=== PATIENT | female | born 1965 | race Caucasian/White ===

== ENCOUNTER → 2016-11-26 | Outpatient (CLI) | payer BC ==
[~2016-11-26] MED LIST: ATV5X PO; CANA1TAB3 PO; DSY/150 PO; FLUC200T4 PO; GLC850 PO; GLIM4TAB2 PO; MECL1TAB42 PO; ONDA4TAB10 SL; ONDA4TAB46 PO; PHEN30CA PO; PHEN37.5 PO; POLYSOL21 OPB; PRED20TA PO; SITA1TAB27 PO; SITA50TA PO; ULT50 PO; ZLF/50 PO
--- NOTE | 2016-11-26 10:45 | DIAGNOSTIC IMAGING REPORT ---
CERVICAL SPINE MRI HISTORY: Pain. Radiculopathy. M50.20 TECHNIQUE: Multiplanar multisequence MRI of the cervical spine was performed without the use of contrast. COMPARISON STUDY: None. FINDINGS: Minimal disc desiccation throughout the entire cervical region. Normal signal characteristics of the cervical cord. C2-C3: No significant central canal or neural foraminal narrowing. C3-C4: No significant central canal or neural foraminal narrowing. C4-C5: No significant central canal or neural foraminal narrowing. C5-C6: No significant central canal or neural foraminal narrowing. C6-C7: No significant central canal or neural foraminal narrowing. C7-T1: No significant central canal or neural foraminal narrowing. IMPRESSION: Minimal degenerative disc desiccation. No evidence for significant disc herniation or component of spinal stenosis. Electronically signed by: Shaq Heller M.D. 11/26/2016 10:44 AM Dictated Date/Time: 11/26/2016 10:38 AM
== END | disposition home or self-care (01) ==
LOC: C.MRIBC 09:14
PROVIDERS: ATTEND Orthopaedic Surgery Orthopaedic Surgery of the Spine
DX: M50.20 Other cervical disc displacement, unspecified cervical region (principal)

== ENCOUNTER 2016-12-12 17:47 | Emergency (ER) | payer BC ==
[~2016-12-12] VITALS: Ht 165.1 cm; Wt 78.7 kg
[~2016-12-12 17:47] MED LIST changes: -CANA1TAB3 PO; -FLUC200T4 PO; -GLIM4TAB2 PO; -MECL1TAB42 PO; -ONDA4TAB10 SL; -PHEN30CA PO; -POLYSOL21 OPB; -PRED20TA PO; -SITA1TAB27 PO
[2016-12-12 17:54] VITALS: TEMP 36.9; Ht 165.1 cm; Wt 78.7 kg
[2016-12-12] MEDS ORDERED: SODIUM CHLORIDE 0.9% 1000ML 1,000 ML IV STA ×3 (18:05→19:38)
[2016-12-12] MEDS ORDERED: ONDANSETRON INJ 2 MG/ML 2 ML VIAL IV STA (18:12)
[2016-12-12 19:05] LABS: BASO % 0.3 %; BASO ABS # 0.03 K/uL (0-0.2); COMPLETE YES; EOS % 2.9 %; HEMATOCRIT 45.5 % (37-47); IG% 0.1 %; LYMPH % 31.5 %; MEAN CELL VOLUME 83.8 fL (80-100); MEAN CORPUSCULAR HEMOGLOBIN 27.3 pg (25-34); MEAN CORPUSCULAR HGB CONC 32.5 g/dl (32-36); MONO % 6.9 %; NEUT % 58.3 %; PLATELET COUNT 342 K/uL (130-400); RED BLOOD COUNT 5.43 M/uL (4.2-5.4)
[2016-12-12 19:28] LABS: ALKALINE PHOSPHATASE 84 U/L (45-117); ALT/SGPT 48 U/L (12-78); AST/SGOT 25 U/L (15-37); BLOOD UREA NITROGEN 10 mg/dl (7-18); BUN/CREATININE RATIO 9.7 (10-20); CARBON DIOXIDE 25 mmol/L (21-32); CHLORIDE 105 mmol/L (98-107); GLUCOSE 455 mg/dl (70-99); POTASSIUM 3.6 mmol/L (3.5-5.1); SODIUM 138 mmol/L (136-145)
[2016-12-12 19:37] LABS: PREG INTERNAL NEGATIVE QC NEG CLEAR BACKGROUND; PREG INTERNAL POSITIVE QC POS CONTROL LINE
--- NOTE | 2016-12-12 19:37 | DIAGNOSTIC IMAGING REPORT ---
ABDOMEN AND PELVIS CT WITHOUT CONTRAST CT DOSE: 439.18 mGy.cm HISTORY: nausea and vomiting TECHNIQUE: Multiaxial CT images of the abdomen and pelvis were performed without contrast. COMPARISON STUDY: Abdomen and pelvis CT 09/29/2015. FINDINGS: The lung bases are clear. Hepatic steatosis. Hysterectomy. The unenhanced spleen, adrenal glands, and pancreas are unremarkable. No retroperitoneal lymphadenopathy. There are punctate bilateral intrarenal calculi. No hydronephrosis. No ureteral calculi. Normal bladder. An intrauterine device is in good position. The ovaries are unremarkable. Suboptimal evaluation for bowel pathology due to the lack of intravenous and oral contrast. However, there is no definite bowel wall thickening or obstruction. The appendix is likely surgically absent. IMPRESSION: 1. No definite bowel wall thickening or obstruction. 2. Bilateral nephrolithiasis. No hydronephrosis. 3. Cholecystectomy. 4. Hepatic steatosis. Electronically signed by: Yosvany Robin M.D. 12/12/2016 7:36 PM Dictated Date/Time: 12/12/2016 7:30 PM
[2016-12-12] MEDS ORDERED: NovoLIN-R INSULIN PER UNIT CHARGE IV STA (19:38)
[2016-12-12 19:40] LABS: URINE APPEARANCE CLEAR (CLEAR); URINE BILIRUBIN NEG (NEG); URINE COLOR YELLOW; URINE NITRITE NEG (NEG); URINE SPECIFIC GRAVITY 1.039 (1.000-1.030); UROBILINOGEN NEG (NEG); ZZUR CULT IF INDIC CLEAN CATCH NO
[2016-12-12 19:41] LABS: BETA-HYDROXYBUTYRATE 0.81 mg/dL (0.2-2.81)
[2016-12-12 19:46] LABS: MANUAL MICROSCOPIC REQUIRED? NO; REVIEW REQ? NO
[2016-12-12] MEDS ORDERED: SITA1TAB27 PO (19:50)
[2016-12-12] MEDS ORDERED: PHEN1CAP PO (19:50)
[2016-12-12] MEDS ORDERED: GLIM4TAB2 PO (19:50)
[2016-12-12] MEDS ORDERED: FLUC200T4 PO (19:50)
[2016-12-12] MEDS ORDERED: PRED20TA PO (21:52)
[2016-12-12] MEDS ORDERED: RANITIDINE HCL 150 MG TAB PO ONE (22:00)
[2016-12-12 22:03] VITALS: BP 138/78; PULSE 93; O2SAT 99
--- NOTE | 2016-12-13 17:51 | EMERGENCY ROOM VISIT NOTE ---
History Report prepared by Phong: Vidya Mcpherson Under the Supervision of: Dr. Zach Daley M.D. First contact with patient: 17:58 Chief Complaint: GI ASSESSMENT Stated Complaint: ABDOMINAL PAIN, RASH, INDIGESTION, RASH ON LEGS History of Present Illness The patient is a 51 year old female who presents to the Emergency Room for a GI assessment of constant symptoms that started 5 days ago. The patient has been experiencing GERD, abdominal cramping, nausea, vomiting, and diarrhea persistently for the last 5 days. The abdominal cramping is associated with when she has bowel movements. She states that she experiences burning in her throat and mouth after vomiting. The patient states that her burps smell like "sulfur or rotten eggs." The patient has taken TUMS without any relief of her symptoms. The patient called her PCP today, but they said they could not get her in today and recommended coming into the ED for further evaluation. She states that she has been experiencing GERD 1-2 times a week for the last couple weeks but it became constant 5 days ago. The patient states that she is being treated by her PCP for a systemic yeast infection. The patient states that she has Type 2 diabetes and her doctor increased her Invokana several weeks ago. After her Invokana was increased, she experienced persistent vaginal yeast infections and developed joint aches and fatigue. She called her PCP and discussed her symptoms with them and they told her to stop taking the Invokana and prescribed her Nystatin for yeast in her mouth and a 14 day course of Fluconazole for a systemic yeast infection. The patient started the Fluconazole 5 days ago. She states that she had symptoms prior to taking the new medications. The patient denies any other new medications or any other medication changes. The patient is also experiencing a rash from her thighs to her ankles bilaterally which started this morning. She states that the rash dan and is pruritic. She experienced a similar rash a couple weeks ago and saw her PCP for it. Her PCP told her that the rash was a razor rash. The patient adds that she is experiencing increased urinary frequency but denies any other urinary symptoms. Pt denies LOC, headache, fevers, chills, diaphoresis , visual changes, neck pain, chest pain, breathing difficulties, back pain, melena, hematochezia, numbness, weakness, lymphadenopathy, rash other than rash on bilateral legs, or other complaints. The patient states that her blood sugars have been high recently because she has not been eating much secondary to the "gassy and uncomfortable" feeling she gets after eating. The patient denies any recent antibiotic use. Source of History: patient Onset: 5 days ago Position: abdomen Quality: other (GI assessment) Timing: constant Modifying Factors (Relieving): other (None) Associated Symptoms: + nausea, + vomiting, + abdominal pain (cramping), + diarrhea, + urinary symptoms (increased frequency), + rash (bilateral legs) Note: GERD. burning in throat and mouth after vomiting, burps smell like "sulfur or rotten eggs" Review of Systems See HPI for pertinent positives and negatives. A total of ten systems were reviewed and were otherwise negative. Past Medical & Surgical Medical Problems: (1) Dehydration (2) Depressive disorder (3) Diabetes mellitus type 2 (4) Ectopic (5) Fatty liver (6) Fibromyalgia (7) Headache (8) Heart palpitations (9) Heart palpitations (10) Hyperglycemia (11) Kidney stones (12) Near syncope (13) Pyelonephritis (14) Sleep apnea (15) Syncope (16) Syncope (17) Syncope (18) UTI (urinary tract infection) Surgical Problems: (1) History of cholecystectomy (2) Hx of appendectomy Family History Heart disease Social History Smoking Status: Never Smoker Alcohol Use: occasionally Drug Use: none Marital Status: Housing Status: lives with family Occupation Status: unemployed Current/Historical Medications Scheduled Fluconazole (Diflucan), 1 TAB PO DAILY Glimepiride (Glimepiride), 1.5 TAB PO DAILY Metformin HCl (Metformin HCl), 850 MG PO TID Phentermine Hcl (Phentermine Hcl), 1 TAB PO QAM Prednisone (Prednisone), 20 MG PO DAILY Sertraline HCl (Sertraline HCl), 50 MG PO DAILY Sitagliptin (Januvia), 1 TAB PO DAILY Trazodone HCl (Trazodone HCl), 150 MG PO HS Scheduled PRN Lorazepam (Lorazepam), 0.5 MG PO HS PRN for Anxiety/Insomnia Ondansetron Hcl (Zofran), 4 MG PO Q4H PRN for Nausea Tramadol HCl (Tramadol HCl), 50 MG PO Q8 PRN for Pain Allergies Coded Allergies: Sulfa Antibiotics (Verified Allergy, Intermediate, HIVES, 12/12/16) Physical Exam Vital Signs Date Time Temp Pulse Resp B/P (MAP) Pulse Ox O2 Delivery O2 Flow Rate FiO2 12/12/16 22:03 93 20 138/78 99 12/12/16 21:10 82 18 146/85 96 Room Air 12/12/16 19:45 102 20 134/96 98 Room Air 12/12/16 19:08 103 12/12/16 17:54 36.9 107 16 150/89 96 Room Air Physical Exam GENERAL: Awake, alert, well-appearing, in no distress HENT: Normocephalic, atraumatic. Oropharynx unremarkable. EYES: Normal conjunctiva. Sclera non-icteric. NECK: Supple. No nuchal rigidity. FROM. No JVD. RESPIRATORY: Clear to auscultation. CARDIAC: Borderline tachycardic rate, normal rhythm. Extremities warm and well perfused. Pulses equal. ABDOMEN: Soft, non-distended. Epigastric tenderness to palpation. No rebound or guarding. No masses. RECTAL: Deferred. MUSCULOSKELETAL: Chest examination reveals no tenderness. The back is symmetrical on inspection without obvious abnormality. There is no CVA tenderness to palpation. No joint edema. LOWER EXTREMITIES: Calves are equal size bilaterally and non-tender. No edema. No discoloration. NEURO: Normal sensorium. No sensory or motor deficits noted. SKIN: Blotchy erythematous dry rash on bilateral lower extremities. No petechiae, purpura, vesicles, or bullae. No jaundice noted. Medical Decision & Procedures ER Provider Diagnostic Interpretation: Radiology results as stated below per my review and radiologist interpretation: ABDOMEN AND PELVIS CT WITHOUT CONTRAST FINDINGS: The lung bases are clear. Hepatic steatosis. Hysterectomy. The unenhanced spleen, adrenal glands, and pancreas are unremarkable. No retroperitoneal lymphadenopathy. There are punctate bilateral intrarenal calculi. No hydronephrosis. No ureteral calculi. Normal bladder. An intrauterine device is in good position. The ovaries are unremarkable. Suboptimal evaluation for bowel pathology due to the lack of intravenous and oral contrast. However, there is no definite bowel wall thickening or obstruction. The appendix is likely surgically absent. IMPRESSION: 1. No definite bowel wall thickening or obstruction. 2. Bilateral nephrolithiasis. No hydronephrosis. 3. Cholecystectomy. 4. Hepatic steatosis. Electronically signed by: Yosvany Robin M.D. 12/12/2016 7:36 PM Dictated Date/Time: 12/12/2016 7:30 PM Laboratory Results 12/12/16 18:44 Red Blood Count 5.43, Mean Corpuscular Volume 83.8, Mean Corpuscular Hemoglobin 27.3, Mean Corpuscular Hemoglobin Concent 32.5, Mean Platelet Volume 10.0, Neutrophils (%) (Auto) 58.3, Lymphocytes (%) (Auto) 31.5, Monocytes (%) (Auto) 6.9, Eosinophils (%) (Auto) 2.9, Basophils (%) (Auto) 0.3, Neutrophils # (Auto) 6.47, Lymphocytes # (Auto) 3.50, Monocytes # (Auto) 0.77, Eosinophils # (Auto) 0.32, Basophils # (Auto) 0.03 12/12/16 18:44 Test 12/12/16 18:44 12/12/16 19:20 12/12/16 20:48 White Blood Count 11.10 K/uL (4.8-10.8) Red Blood Count 5.43 M/uL (4.2-5.4) Hemoglobin 14.8 g/dL (12.0-16.0) Hematocrit 45.5 % (37-47) Mean Corpuscular Volume 83.8 fL (80-100) Mean Corpuscular Hemoglobin 27.3 pg (25-34) Mean Corpuscular Hemoglobin Concent 32.5 g/dl (32-36) Platelet Count 342 K/uL (130-400) Mean Platelet Volume 10.0 fL (7.4-10.4) Neutrophils (%) (Auto) 58.3 % Lymphocytes (%) (Auto) 31.5 % Monocytes (%) (Auto) 6.9 % Eosinophils (%) (Auto) 2.9 % Basophils (%) (Auto) 0.3 % Neutrophils # (Auto) 6.47 K/uL (1.4-6.5) Lymphocytes # (Auto) 3.50 K/uL (1.2-3.4) Monocytes # (Auto) 0.77 K/uL (0.11-0.59) Eosinophils # (Auto) 0.32 K/uL (0-0.5) Basophils # (Auto) 0.03 K/uL (0-0.2) RDW Standard Deviation 43.8 fL (36.4-46.3) RDW Coefficient of Variation 14.2 % (11.5-14.5) Immature Granulocyte % (Auto) 0.1 % Immature Granulocyte # (Auto) 0.01 K/uL (0.00-0.02) Anion Gap 8.0 mmol/L (3-11) Est Creatinine Clear Calc Drug Dose 69.0 ml/min Estimated GFR () 75.5 Estimated GFR (Non- 65.2 BUN/Creatinine Ratio 9.7 (10-20) Calcium Level 9.0 mg/dl (8.5-10.1) Total Bilirubin 0.5 mg/dl (0.2-1) Direct Bilirubin 0.1 mg/dl (0-0.2) Aspartate Amino Transf (AST/SGOT) 25 U/L (15-37) Alanine Aminotransferase (ALT/SGPT) 48 U/L (12-78) Alkaline Phosphatase 84 U/L (45-117) Troponin I < 0.015 ng/ml (0-0.045) Total Protein 7.0 gm/dl (6.4-8.2) Albumin 3.2 gm/dl (3.4-5.0) Lipase 312 U/L (73-393) Beta-Hydroxybutyric Acid 0.81 mg/dL (0.2-2.81) Human Chorionic Gonadotropin, Qual NEG (NEG) Urine Color YELLOW Urine Appearance CLEAR (CLEAR) Urine pH 6.0 (4.5-7.5) Urine Specific [place] 1.039 (1.000-1.030) Urine Protein NEG (NEG) Urine Glucose (UA) 3+ (NEG) Urine Ketones NEG (NEG) Urine Occult Blood NEG (NEG) Urine Nitrite NEG (NEG) Urine Bilirubin NEG (NEG) Urine Urobilinogen NEG (NEG) Urine Leukocyte Esterase NEG (NEG) Bedside Glucose 301 mg/dl (70-90) Laboratory results reviewed by me Medications Administered Medications (Trade) Dose Ordered Sig/Vishal Route Start Time Stop Time Status Last Admin Dose Admin Sodium Chloride 1,000 ml @ 125 mls/hr Q8H STAT IV 12/12/16 18:05 12/13/16 02:04 DC 12/12/16 21:14 125 MLS/HR Sodium Chloride 1,000 ml @ 999 mls/hr Q1H1M STAT IV 12/12/16 18:05 12/12/16 19:05 DC 12/12/16 18:05 999 MLS/HR Ondansetron HCl (Zofran Inj) 4 mg NOW STAT IV 12/12/16 18:12 12/12/16 18:14 DC 12/12/16 18:57 4 MG Sodium Chloride 1,000 ml @ 999 mls/hr Q1H1M STAT IV 12/12/16 19:38 12/12/16 20:38 DC 12/12/16 19:55 999 MLS/HR Insulin Human Regular (novoLIN-R U-100 PER UNIT) 8 units NOW STAT IV 12/12/16 19:38 12/12/16 19:39 DC 12/12/16 19:54 8 UNITS Prednisone (PredniSONE TAB) 20 mg NOW STAT PO 12/12/16 21:50 12/12/16 21:52 DC 12/12/16 21:57 20 MG Ranitidine HCl (zANTac TAB) 150 mg NOW ONCE PO 12/12/16 22:00 12/12/16 22:01 DC 12/12/16 21:57 150 MG ECG Indication: abdominal pain, nausea, vomiting Rate (beats per minute): 101 Rhythm: sinus tachycardia Findings: no acute ischemic change, no ectopy, other (normal QT interval) ED Course 1804: Ordered Sodium Chloride 1000 ml @ 999 mls/hr IV, Sodium Chloride 1000 ml @ 125 mls/hr IV 1808: The patient was evaluated in room C7. A complete history and physical exam was performed. 1811: Ordered Zofran Inj 4 mg IV 1937: Ordered Insulin Human Regular 8 units IV, Sodium Chloride 1000 ml @ 999 mls/hr IV 1944: I reassessed and updated the patient. She is going to receive fluids and then have her blood sugar rechecked. 2148: I reevaluated the patient. She told me that she does not want to stay because she has to take her evening medications. She is in agreement with Zantac and low dose prednisone. She does not want ot take Benadryl here because if she takes it at night it worsens her restless legs. Discussed results and discharge instructions with her. She verbalized understanding and agreement. The patient is ready for discharge. 2149: Ordered Prednisone 20 mg PO 2151: Upon review of the patient's record, she has had elevated heart rates in the 90s to low 100s for the last year. 2200: Ordered Zantac Tab 150 mg PO Medical Decision Medication Reconciliation: I attest that I have personally reviewed the patient' s current medication list Blood pressure screening: Patient was found to have an elevated blood pressure and was referred to their primary doctor for recheck and further treatment. Triage Nursing notes reviewed. The patient's presentation and history were concerning for rash, abdominal pain , indigestion. Etiologies such as Medication reaction, dermatitis, allergic reaction, appendicitis, diverticulitis, obstruction, inflammatory bowel disease, renal colic, PUD, biliary pathology, pancreatitis, mesenteric ischemia, aortic pathology, infections, genitourinary, UTI, perforated viscus, as well as others were entertained. The patient was evaluated. She was hydrated. She was given Zofran. ECG was unremarkable. Blood was obtained. She had a subtle leukocytosis of 11.1 but no evidence of anemia. Chemistry was unremarkable except for a glucose of 455. Her LFTs, test, and beta hydroxy butyrate were negative. Urinalysis was negative. The patient's CT scan of the abdomen and pelvis did not reveal any evidence of emergent pathology. The patient had additional hydration and IV insulin given. Her sugar decreased to 301. Initially I was reluctant to do prednisone as the patient is diabetic. She notes that the itching in her legs is extremely annoying and I discussed a trial of a small amount of prednisone at a low dose. She was in agreement. She'll modify her diet. I did discuss her diabetic diet. The patient desired to be discharged. He did do blood cultures. Fungal smear was unremarkable. The patient was advised to stop her fluconazole and she is been on this for almost a week. This could be causing some issues with the rash although the etiology is not obvious at this time. The patient will use an antihistamine in low dose as well a steroid. She will monitor her sugar very closely. She will follow-up closely with her primary office tomorrow. If she worsens in any way she will come back. Record review indicates the patient has had a baseline borderline tachycardia over the last several visits. His hypertensive. The patient was counseled. I gave my usual and customary discussion regarding this issue. By the evaluation outlined above other emergent etiologies such as those listed in the differential, as well as others, were deemed relatively unlikely. The patient was educated about the findings as listed above. All questions were answered and the patient was pleased with the treatment. Return instructions were outlined and the patient was discharged in stable condition. The patient was referred to her PCP for follow-up for a recheck of the current condition. Impression Primary Impression: Rash Additional Impressions: Hyperglycemia Nausea Epigastric abdominal pain Scribe Attestation The scribe's documentation has been prepared under my direction and personally reviewed by me in its entirety. I confirm that the note above accurately reflects all work, treatment, procedures, and medical decision making performed by me. Departure Information Dispostion Home / Self-Care Prescriptions Prednisone (Prednisone) 20 Mg Tab 20 MG PO DAILY for 4 Days, #4 TAB Prov: Zach Daley MD 12/12/16 Referrals Gabbie Garcia M.D. (PCP) Forms HOME CARE DOCUMENTATION FORM, IMPORTANT VISIT INFORMATION Patient Instructions My [facility] Additional Instructions Monitor sugar 4 times daily for follow-up with Dr. Garcia. Minimize carbohydrate intake. Avoid all sugars. Proteins and fats are okay for your diet. Prednisone 20 mg: Once daily until the prescription is finished. This may cause your blood sugar to elevate. Zantac 150 mg twice daily as needed for itching. Diphenhydramine: Use 25 to 50 mg every six hours for swelling, itching, or hives. This medication may cause sedation. Do not drive or perform dangerous activity if you are using this medication. Return to the emergency room for worsening rash, blistering, sloughing of the skin, fever, vomiting, chest pain, elevated blood sugars persistently over 300, worsening of your condition or as needed. Call your primary office tomorrow to set a follow-up appointment as soon as possible. Problem Qualifiers
== END 2016-12-12 22:07 | disposition home or self-care (01) ==
LOC: C.EDB 17:49 → C.EDC 22:07
DX: R10.13 Epigastric pain (principal); R21 Rash and other nonspecific skin eruption; E11.65 Type 2 diabetes mellitus with hyperglycemia; R11.0 Nausea; F32.9 Major depressive disorder, single episode, unspecified; K76.0 Fatty (change of) liver, not elsewhere classified; G47.30 Sleep apnea, unspecified; Z87.440 Personal history of urinary (tract) infections; Z87.442 Personal history of urinary calculi; Z90.49 Acquired absence of other specified parts of digestive tract; Z98.890 Other specified postprocedural states; Z79.84 Long term (current) use of oral hypoglycemic drugs; Z79.899 Other long term (current) drug therapy; Z88.2 Allergy status to sulfonamides; Z82.49 Family history of ischemic heart disease and other diseases of the circulatory system

== ENCOUNTER 2017-01-24 07:58 | Emergency (ER) | payer BC ==
[~2017-01-24] VITALS: Ht 162.6 cm; Wt 79.4 kg
[~2017-01-24 07:58] MED LIST changes: +FLUC200T4 PO; +GLIM4TAB2 PO; +PHEN1CAP PO; -PHEN37.5 PO; +SITA1TAB27 PO; -SITA50TA PO
[2017-01-24 08:01] VITALS: TEMP 36.7; O2SAT 97; Ht 162.6 cm; Wt 79.4 kg
[2017-01-24] MEDS ORDERED: ONDANSETRON INJ 2 MG/ML 2 ML VIAL IV STA ×2 (08:14→09:46)
[2017-01-24] MEDS ORDERED: SODIUM CHLORIDE 0.9% 1000ML 1,000 ML IV STA (08:14)
[2017-01-24] MEDS ORDERED: MoRPHine SULFATE 4 MG/ML 1 ML CARP\\VIAL IV STA (08:14)
--- NOTE | 2017-01-24 08:19 | EMERGENCY ROOM VISIT NOTE ---
History First contact with patient: 08:06 Chief Complaint: GI ASSESSMENT Stated Complaint: N,V, SEVERE ABD. PAIN, BURPS Nursing Triage Summary: Pt c/o n/v/d and abd cramps that started yesterday History of Present Illness The patient is a 51 year old female who presents to the Emergency Room with complaints of abdominal cramping, nausea, vomiting and diarrhea. The patient states that her symptoms started yesterday. She states that she is not able to keep anything down. She reports diffuse abdominal cramping which she rates a 7/ 10. She denies any fevers or chills. She denies any urinary symptoms. She has had cholecystectomy and appendectomy in the past. She is a type II diabetic. She does not know of any sick contacts. She has not had any recent travel. She has not been on antibiotics recently. Review of Systems A 10 system review of systems was completed with positives and pertinent negatives listed in the HPI. Past Medical/Surgical History Medical Problems: (1) Dehydration (2) Depressive disorder (3) Diabetes mellitus type 2 (4) Ectopic (5) Fatty liver (6) Fibromyalgia (7) Headache (8) Heart palpitations (9) Heart palpitations (10) Hyperglycemia (11) Kidney stones (12) Near syncope (13) Pyelonephritis (14) Sleep apnea (15) Syncope (16) Syncope (17) Syncope (18) UTI (urinary tract infection) Surgical Problems: (1) History of cholecystectomy (2) Hx of appendectomy Family History Heart disease Social History Smoking Status: Former Smoker Alcohol Use: occasionally Drug Use: none Marital Status: Housing Status: lives with family Occupation Status: unemployed Current/Historical Medications Scheduled Glimepiride (Glimepiride), 1.5 TAB PO DAILY Metformin HCl (Metformin HCl), 850 MG PO TID Ondasetron Odt (Zofran Odt), 4 MG SL Q6H Phentermine Hcl (Phentermine Hcl), 1 TAB PO QAM Sertraline HCl (Sertraline HCl), 50 MG PO DAILY Sitagliptin (Januvia), 1 TAB PO DAILY Trazodone HCl (Trazodone HCl), 150 MG PO HS Scheduled PRN Lorazepam (Lorazepam), 0.5 MG PO HS PRN for Anxiety/Insomnia Ondansetron Hcl (Zofran), 4 MG PO Q4H PRN for Nausea Tramadol HCl (Tramadol HCl), 50 MG PO Q8 PRN for Pain Physical Exam Vital Signs Date Time Temp Pulse Resp B/P (MAP) Pulse Ox O2 Delivery O2 Flow Rate FiO2 01/24/17 10:54 118/68 01/24/17 09:48 81 122/70 01/24/17 08:01 36.7 113 24 160/112 97 Room Air Physical Exam VITALS: Vitals are noted on the nurse's note and reviewed by myself. Vital signs stable. GENERAL: This is a 51-year-old female, in no acute distress, nondiaphoretic, well-developed well-nourished. SKIN: The skin was without rashes, erythema, edema, or bruising. There is no tenting of the skin. Capillary reflex less than 2 seconds. HEAD: Normocephalic atraumatic. EARS: The external ears are normal in appearance. EYES: Pupils equal round and reactive to light and accommodation. Conjunctivae without injection, sclerae without icterus. Extraocular movements intact. NOSE: Patent, turbinates without inflammation or discharge. MOUTH: Mucous membranes moist. Tonsils are not enlarged. Pharynx without erythema or exudate. Uvula midline. Airway patent. Tongue does not deviate. NECK: Supple without nuchal rigidity. No lymphadenopathy. No thyromegaly. Cervical spine is nontender. No JVD. HEART: Regular rate and rhythm without murmurs gallops or rubs. LUNGS: Clear to auscultation bilaterally without wheezes, rales or rhonchi. No retractions or accessory muscle use. ABDOMEN: Positive bowel sounds x 4. Soft, mild diffuse tenderness, without masses or organomegaly. MUSCULOSKELETAL: No muscle atrophy, erythema, or edema noted. Full range of motion in all extremities. No tenderness to palpation. Normal gait. Strength 5/5 throughout. NEURO: Patient was alert and oriented to person place and time. No focal neurological deficits. Medical Decision & Procedures Laboratory Results 01/24/17 08:40 Red Blood Count 5.37, Mean Corpuscular Volume 84.7, Mean Corpuscular Hemoglobin 28.3, Mean Corpuscular Hemoglobin Concent 33.4, Mean Platelet Volume 10.1, Neutrophils (%) (Auto) 75.3, Lymphocytes (%) (Auto) 17.4, Monocytes (%) (Auto) 6.1, Eosinophils (%) (Auto) 0.8, Basophils (%) (Auto) 0.1, Neutrophils # (Auto) 12.48, Lymphocytes # (Auto) 2.88, Monocytes # (Auto) 1.02, Eosinophils # (Auto) 0.14, Basophils # (Auto) 0.02 01/24/17 08:40 Test 01/24/17 08:40 01/24/17 09:30 White Blood Count 16.59 K/uL (4.8-10.8) Red Blood Count 5.37 M/uL (4.2-5.4) Hemoglobin 15.2 g/dL (12.0-16.0) Hematocrit 45.5 % (37-47) Mean Corpuscular Volume 84.7 fL (80-100) Mean Corpuscular Hemoglobin 28.3 pg (25-34) Mean Corpuscular Hemoglobin Concent 33.4 g/dl (32-36) Platelet Count 303 K/uL (130-400) Mean Platelet Volume 10.1 fL (7.4-10.4) Neutrophils (%) (Auto) 75.3 % Lymphocytes (%) (Auto) 17.4 % Monocytes (%) (Auto) 6.1 % Eosinophils (%) (Auto) 0.8 % Basophils (%) (Auto) 0.1 % Neutrophils # (Auto) 12.48 K/uL (1.4-6.5) Lymphocytes # (Auto) 2.88 K/uL (1.2-3.4) Monocytes # (Auto) 1.02 K/uL (0.11-0.59) Eosinophils # (Auto) 0.14 K/uL (0-0.5) Basophils # (Auto) 0.02 K/uL (0-0.2) RDW Standard Deviation 41.5 fL (36.4-46.3) RDW Coefficient of Variation 13.6 % (11.5-14.5) Immature Granulocyte % (Auto) 0.3 % Immature Granulocyte # (Auto) 0.05 K/uL (0.00-0.02) Anion Gap 7.0 mmol/L (3-11) Est Creatinine Clear Calc Drug Dose 83.8 ml/min Estimated GFR () 97.5 Estimated GFR (Non- 84.1 BUN/Creatinine Ratio 14.6 (10-20) Calcium Level 9.2 mg/dl (8.5-10.1) Total Bilirubin 0.4 mg/dl (0.2-1) Aspartate Amino Transf (AST/SGOT) 30 U/L (15-37) Alanine Aminotransferase (ALT/SGPT) 41 U/L (12-78) Alkaline Phosphatase 77 U/L (45-117) Total Protein 7.1 gm/dl (6.4-8.2) Albumin 3.2 gm/dl (3.4-5.0) Globulin 3.9 gm/dl (2.5-4.0) Albumin/Globulin Ratio 0.8 (0.9-2) Lipase 211 U/L (73-393) Urine Color YELLOW Urine Appearance CLEAR (CLEAR) Urine pH 5.5 (4.5-7.5) Urine Specific [place] 1.014 (1.000-1.030) Urine Protein NEG (NEG) Urine Glucose (UA) 1+ (NEG) Urine Ketones NEG (NEG) Urine Occult Blood NEG (NEG) Urine Nitrite NEG (NEG) Urine Bilirubin NEG (NEG) Urine Urobilinogen NEG (NEG) Urine Leukocyte Esterase NEG (NEG) Urine Test NEG (NEG) Medications Administered Medications (Trade) Dose Ordered Sig/Vishal Route Start Time Stop Time Status Last Admin Dose Admin Sodium Chloride 1,000 ml @ 999 mls/hr Q1H1M STAT IV 01/24/17 08:14 01/24/17 09:14 DC 01/24/17 08:39 999 MLS/HR Ondansetron HCl (Zofran Inj) 4 mg NOW STAT IV 01/24/17 08:14 01/24/17 08:16 DC 01/24/17 08:38 4 MG Morphine Sulfate (MoRPHine SULFATE INJ) 4 mg NOW STAT IV 01/24/17 08:14 01/24/17 08:16 DC 01/24/17 08:39 4 MG Promethazine HCl 25 mg/Sodium Chloride 51 ml @ 204 mls/hr NOW STAT IV 01/24/17 08:43 01/24/17 08:57 DC 01/24/17 08:51 204 MLS/HR Dicyclomine HCl (Bentyl Inj) 20 mg NOW ONCE IM 01/24/17 10:00 01/24/17 10:01 DC 01/24/17 09:54 20 MG Ondansetron HCl (Zofran Inj) 4 mg NOW STAT IV 01/24/17 09:46 01/24/17 09:48 DC 01/24/17 09:54 4 MG ED Course The patient was seen and examined. Previous visits were reviewed. The patient does not have a fever. She does have a leukocytosis of 16.59. She does not have any significant electrolyte abnormality. Glucose is elevated at 247. She does have a history of diabetes. Lipase is not elevated. Urinalysis is negative. Urine test is negative. The patient was hydrated with normal saline solution 1 L IV She was initially given 4 mg IV Zofran and 4 mg IV morphine. She continues to complain of nausea and vomiting and was given 25 mg IV Phenergan. She still complained of nausea and stomach pain. She was given 20 mg IM Bentyl and 4 mg IV Zofran. Upon reevaluation, the patient was resting comfortably and stated she felt much better. The patient presents to the emergency department with diffuse abdominal discomfort, nausea, vomiting and diarrhea. I suspect that this is a viral gastroenteritis. The patient has had appendectomy and cholecystectomy in the past. She does not have any localized tenderness in her abdomen. She is encouraged to return with any localized pain, fever, generalized worsening symptoms. Otherwise, she should follow with her family doctor next week. She was given a prescription for Zofran. The patient was also seen and examined by who agrees with the assessment and treatment plan. Medical Decision DIFFERENTIAL DIAGNOSIS: Hepatitis, cholecystitis, cholangitis, biliary colic, pancreatitis, pneumonia, subdiaphragmatic abscess, appendicitis, inguinal hernia , nephrolithiasis, inflammatory bowel disease, mesenteric adenitis, peptic ulcer disease, GERD, gastritis, pancreatitis, myocardial infarction, pericarditis, ruptured aortic aneurysm, appendicitis, gastroenteritis, bowel obstruction, splenic infarct, diverticulitis, mesenteric ischemia, metabolic, peritonitis, among others. Medication Reconcilliation Current Medication List: was personally reviewed by me Blood Pressure Screening Patient's blood pressure: Normal blood pressure Blood pressure disposition: Did not require urgent referral Impression Primary Impression: Nausea vomiting and diarrhea Departure Information Dispostion Home / Self-Care Condition GOOD Prescriptions Ondasetron Odt (ZOFRAN ODT) 4 Mg Tab 4 MG SL Q6H for Nausea, #10 TAB Prov: Ne Strickland PA-C 01/24/17 Referrals Gabbie Garcia M.D. (PCP) Patient Instructions ED Food Poison Or Gastroenteritis, My [facility] Additional Instructions Zofran as prescribed, as needed for nausea and vomiting [place] diet and increase diet slowly Return with any worsening symptoms Otherwise, follow up with your family doctor next week
[2017-01-24] MEDS ORDERED: PROMETHAZINE HCL INJ 25 MG in SODIUM CHLORIDE 0.9% 50ML 50 ML IV STA (08:43)
[2017-01-24 09:06] LABS: BASO % 0.1 %; BASO ABS # 0.02 K/uL (0-0.2); COMPLETE YES; EOS % 0.8 %; HEMATOCRIT 45.5 % (37-47); IG% 0.3 %; LYMPH % 17.4 %; LYMPH ABS # 2.88 K/uL (1.2-3.4); MEAN CELL VOLUME 84.7 fL (80-100); MEAN CORPUSCULAR HEMOGLOBIN 28.3 pg (25-34); MEAN CORPUSCULAR HGB CONC 33.4 g/dl (32-36); MEAN PLATELET VOLUME 10.1 fL (7.4-10.4); MONO % 6.1 %; NEUT % 75.3 %; PLATELET COUNT 303 K/uL (130-400); RED BLOOD COUNT 5.37 M/uL (4.2-5.4); WHITE BLOOD COUNT 16.59 K/uL (4.8-10.8)
[2017-01-24 09:24] LABS: BUN/CREATININE RATIO 14.6 (10-20); CALCIUM 9.2 mg/dl (8.5-10.1); CREATININE 0.81 mg/dl (0.60-1.20); POTASSIUM 3.6 mmol/L (3.5-5.1)
[2017-01-24 09:26] LABS: ALB/GLOB RATIO 0.8 (0.9-2)
[2017-01-24 09:48] VITALS: PULSE 81
[2017-01-24] MEDS ORDERED: DICYCLOMINE HCL 10 MG/ML 2 ML AMP IM ONE (10:00)
[2017-01-24 10:05] LABS: URINE APPEARANCE CLEAR (CLEAR); URINE BILIRUBIN NEG (NEG); URINE COLOR YELLOW; URINE NITRITE NEG (NEG); URINE PH 5.5 (4.5-7.5); URINE SPECIFIC GRAVITY 1.014 (1.000-1.030); UROBILINOGEN NEG (NEG); ZZUR CULT IF INDIC CLEAN CATCH NO
[2017-01-24 10:10] LABS: MANUAL MICROSCOPIC REQUIRED? NO; REVIEW REQ? NO
--- NOTE | 2017-01-24 10:14 | EMERGENCY ROOM VISIT NOTE ---
ED Visit Note First contact with patient: 08:06 51-year-old female with abdominal pain and cramping was fully evaluated by Jocelyn Strickland PA-C. Please see her note. I also independently evaluated the patient. The patient was given Bentyl. Patient was felt safe to return home.
[2017-01-24] MEDS ORDERED: ONDA4TAB10 SL (10:34)
[2017-01-24 10:54] VITALS: BP 118/68
== END 2017-01-24 10:54 | disposition home or self-care (01) ==
LOC: C.EDB 08:00
DX: R10.9 Unspecified abdominal pain (principal); R11.2 Nausea with vomiting, unspecified; R19.7 Diarrhea, unspecified; E11.9 Type 2 diabetes mellitus without complications; Z79.899 Other long term (current) drug therapy; K76.0 Fatty (change of) liver, not elsewhere classified; M79.7 Fibromyalgia; Z87.891 Personal history of nicotine dependence; F32.9 Major depressive disorder, single episode, unspecified

== ENCOUNTER 2017-03-11 18:25 | Emergency (ER) | payer BC ==
[~2017-03-11] VITALS: Ht 162.6 cm; Wt 77.9 kg
[~2017-03-11 18:25] MED LIST changes: -FLUC200T4 PO; +ONDA4TAB10 SL
[2017-03-11 18:44] VITALS: TEMP 37; Ht 162.6 cm; Wt 77.9 kg
--- NOTE | 2017-03-11 19:04 | EMERGENCY ROOM VISIT NOTE ---
History Report prepared by Meryibdimas: Babita Bello Under the Supervision of: Dr. Ariel Bills M.D. First contact with patient: 18:53 Chief Complaint: HYPERGLYCEMIA Stated Complaint: SUGAR RUNNING 270-377 FOR A 1.5 WKS History of Present Illness The patient is a 51 year old female who presents to the Emergency Room with complaints of persistent hyperglycemia for the past 1.5 weeks. Her sugars have been running between 270 and 377. The patient reports she was sick with cold symptoms recently and also had a tooth pulled, which caused her to stop her regular diabetes medications for several days. She has been urinating more frequently. She denies any abdominal pain. She has been feeling dizzy as well, but states it is relieved by rest. Today she was at her doctors office and they referred her here to the ED for further evaluation. Source of History: patient Onset: 1.5 weeks UTILITY HAND Position: other (global) Timing: other (persistent) Associated Symptoms: + urinary symptoms, No abdominal pain Review of Systems See HPI for pertinent positives & negatives. A total of 10 systems reviewed and were otherwise negative. Past Medical & Surgical Medical Problems: (1) Dehydration (2) Depressive disorder (3) Diabetes mellitus type 2 (4) Ectopic (5) Fatty liver (6) Fibromyalgia (7) Headache (8) Heart palpitations (9) Heart palpitations (10) Hyperglycemia (11) Kidney stones (12) Near syncope (13) Pyelonephritis (14) Sleep apnea (15) Syncope (16) Syncope (17) Syncope (18) UTI (urinary tract infection) Surgical Problems: (1) History of cholecystectomy (2) Hx of appendectomy Family History Heart disease Social History Smoking Status: Current Every Day Smoker Alcohol Use: occasionally Drug Use: none Marital Status: Housing Status: lives with family Occupation Status: unemployed Current/Historical Medications Scheduled Glimepiride (Glimepiride), 1.5 TAB PO DAILY Metformin HCl (Metformin HCl), 850 MG PO TID Phentermine Hcl (Phentermine Hcl), 1 TAB PO QAM Polymyxin B-Trimethoprim (Trimethoprim Sulfate/Poly 90174-9.1 Unit/ml-%), 1 DROP OPB QID Sertraline HCl (Sertraline HCl), 50 MG PO DAILY Sitagliptin (Januvia), 1 TAB PO DAILY Trazodone HCl (Trazodone HCl), 150 MG PO HS Scheduled PRN Lorazepam (Lorazepam), 0.5 MG PO HS PRN for Anxiety/Insomnia Meclizine Hcl (Meclizine Hcl), 1 TAB PO TID PRN for Dizziness or Vertigo Ondansetron Hcl (Zofran), 4 MG PO Q4H PRN for Nausea Tramadol HCl (Tramadol HCl), 50 MG PO Q8 PRN for Pain Allergies Coded Allergies: Sulfa Antibiotics (Verified Allergy, Intermediate, HIVES, 03/11/17) Physical Exam Vital Signs Date Time Temp Pulse Resp B/P (MAP) Pulse Ox O2 Delivery O2 Flow Rate FiO2 03/11/17 22:27 75 20 132/75 99 03/11/17 21:25 91 21 100 03/11/17 21:04 121/79 03/11/17 20:41 93 03/11/17 19:41 93 Room Air 03/11/17 19:17 150/92 03/11/17 18:44 37.0 103 20 138/100 93 Room Air Physical Exam GENERAL: Patient is a healthy-appearing well-nourished 51 year old female. HEAD: Normocephalic atraumatic EYES: Ocular movements intact pupils equal and react to light OROPHARYNX mucous membranes are moist no exudates present no erythema or edema present NECK: Supple no nuchal rigidity CHEST: Good equal expansion LUNGS: Clear and equal to auscultation CARDIAC: Normal S1 and S2 ABDOMEN: Soft nontender no guarding BACK: No CVA tenderness EXTREMITIES: No pain upon palpation normal muscle strength in all groups no clubbing cyanosis or edema NEURO: Patient is following commands is answering questions appropriately. Alert and oriented x3 Cranial Nerves 2-12 grossly intact Medical Decision & Procedures Laboratory Results 03/11/17 19:20 Red Blood Count 5.71, Mean Corpuscular Volume 83.2, Mean Corpuscular Hemoglobin 27.8, Mean Corpuscular Hemoglobin Concent 33.5, Mean Platelet Volume 10.4, Neutrophils (%) (Auto) 57.5, Lymphocytes (%) (Auto) 34.1, Monocytes (%) (Auto) 6.4, Eosinophils (%) (Auto) 1.5, Basophils (%) (Auto) 0.2, Neutrophils # (Auto) 7.13, Lymphocytes # (Auto) 4.23, Monocytes # (Auto) 0.79, Eosinophils # (Auto) 0.19, Basophils # (Auto) 0.02 03/11/17 19:20 Test 03/11/17 19:15 03/11/17 19:20 03/11/17 19:31 03/11/17 21:53 Urine Color YELLOW Urine Appearance CLEAR (CLEAR) Urine pH 5.0 (4.5-7.5) Urine Specific [place] 1.043 (1.000-1.030) Urine Protein NEG (NEG) Urine Glucose (UA) 3+ (NEG) Urine Ketones NEG (NEG) Urine Occult Blood NEG (NEG) Urine Nitrite NEG (NEG) Urine Bilirubin NEG (NEG) Urine Urobilinogen NEG (NEG) Urine Leukocyte Esterase NEG (NEG) White Blood Count 12.40 K/uL (4.8-10.8) Red Blood Count 5.71 M/uL (4.2-5.4) Hemoglobin 15.9 g/dL (12.0-16.0) Hematocrit 47.5 % (37-47) Mean Corpuscular Volume 83.2 fL (80-100) Mean Corpuscular Hemoglobin 27.8 pg (25-34) Mean Corpuscular Hemoglobin Concent 33.5 g/dl (32-36) Platelet Count 378 K/uL (130-400) Mean Platelet Volume 10.4 fL (7.4-10.4) Neutrophils (%) (Auto) 57.5 % Lymphocytes (%) (Auto) 34.1 % Monocytes (%) (Auto) 6.4 % Eosinophils (%) (Auto) 1.5 % Basophils (%) (Auto) 0.2 % Neutrophils # (Auto) 7.13 K/uL (1.4-6.5) Lymphocytes # (Auto) 4.23 K/uL (1.2-3.4) Monocytes # (Auto) 0.79 K/uL (0.11-0.59) Eosinophils # (Auto) 0.19 K/uL (0-0.5) Basophils # (Auto) 0.02 K/uL (0-0.2) RDW Standard Deviation 40.4 fL (36.4-46.3) RDW Coefficient of Variation 13.4 % (11.5-14.5) Immature Granulocyte % (Auto) 0.3 % Immature Granulocyte # (Auto) 0.04 K/uL (0.00-0.02) Est Creatinine Clear Calc Drug Dose 56.0 ml/min Estimated GFR () 60.6 Estimated GFR (Non- 52.3 BUN/Creatinine Ratio 15.6 (10-20) Calcium Level 9.6 mg/dl (8.5-10.1) Total Bilirubin 0.5 mg/dl (0.2-1) Direct Bilirubin 0.2 mg/dl (0-0.2) Aspartate Amino Transf (AST/SGOT) 35 U/L (15-37) Alanine Aminotransferase (ALT/SGPT) 59 U/L (12-78) Alkaline Phosphatase 98 U/L (45-117) Total Protein 8.3 gm/dl (6.4-8.2) Albumin 3.8 gm/dl (3.4-5.0) Beta-Hydroxybutyric Acid 1.22 mg/dL (0.2-2.81) Thyroid Stimulating Hormone (TSH) 1.140 uIu/ml (0.300-4.500) Bedside Hemoglobin 16.7 g/dl (12.0-16.0) Bedside Hematocrit 49 % (37-47) Bedside Sodium 141 mEq/L (135-144) Bedside Potassium 3.6 mEq/L (3.3-5.0) Bedside Chloride 101 mEq/L (101-112) Bedside Total CO2 27 mEq/l (24-31) Anion Gap 18.0 mmol/L (16-25) Bedside Blood Urea Nitrogen 21 mg/dl (7-18) Bedside Creatinine 1.0 mg/dl (0.6-1.3) Bedside Glucose (other) 386 mg/dl (70-99) Bedside Ionized Calcium (Mihir) 1.21 mmol/l (1.12-1.32) Bedside Glucose 186 mg/dl (70-90) Labs reviewed by ED physician. Medications Administered Medications (Trade) Dose Ordered Sig/Vishal Route Start Time Stop Time Status Last Admin Dose Admin Sodium Chloride 1,000 ml @ 999 mls/hr Q1H1M STAT IV 03/11/17 19:09 03/11/17 20:09 DC 03/11/17 19:09 999 MLS/HR Ondansetron HCl (Zofran Inj) 4 mg NOW STAT IV 03/11/17 19:09 03/11/17 19:13 DC 03/11/17 19:09 4 MG Insulin Human Regular (novoLIN-R U-100 PER UNIT) 10 units NOW STAT SC 03/11/17 19:09 03/11/17 19:35 DC 03/11/17 19:09 10 UNITS Sodium Chloride 1,000 ml @ 999 mls/hr Q1H1M STAT IV 03/11/17 20:08 03/11/17 21:08 DC 03/11/17 20:08 999 MLS/HR Potassium Chloride (Klor-Con M10) 40 meq NOW STAT PO 03/11/17 20:08 03/11/17 20:10 DC 03/11/17 20:08 40 MEQ Insulin Human Regular (novoLIN-R U-100 PER UNIT) 10 units NOW STAT SC 03/11/17 21:16 03/11/17 21:17 DC 03/11/17 21:16 10 UNITS Meclizine HCl (Antivert Tab) 25 mg NOW STAT PO 03/11/17 21:54 03/11/17 21:55 DC 03/11/17 22:09 25 MG Meclizine HCl (Antivert 25MG Home Pack) 1 homepack UD ONCE PO 03/11/17 22:00 03/11/17 22:01 DC 03/11/17 22:09 1 HOMEPACK ED Course 1899: Past medical records reviewed. The patient was evaluated in room B12A. A complete history and physical examination was performed. 1908: NovoLIN-R 10 units SC, Zofran 4 mg IV, NSS 1000 ml @ 999 mls/hr IV. 2007: Potassium Chloride 40 meq PO, NSS 1000 ml @ 999 mls/hr IV. 2115: NovoLIN-R 10 units SC. 2153: Meclizine HCl 25 mg PO. 2199: Meclizine HCl 25 mg 1 homepack PO. 2204: I reevaluated the patient. She is feeling well and resting comfortably. I discussed her results and discharge instructions and she verbalized complete understanding and agreement. Medical Decision Prior records/ancillary studies reviewed and summarized above. Nursing notes reviewed. Differential diagnosis: Etiologies such as metabolic, infection, hypo/hyperglycemia, electrolyte abnormalities, cardiac sources, intracerebral event, toxicologic, neurologic, as well as others were entertained. This is a 51-year-old female who presents emergency department complaining of hyperglycemia. An IV was established, patient given normal saline bolus 2 area patient was given insulin to bring her sugar down. She was observed emergent department for 4 hours and during that time her sugar was checked multiple times. I do believe that the patient is well enough to be discharged home for follow-up with her primary care physician. The patient was also given meclizine for vertigo. Patient was in agreement with the treatment plan. Medication Reconcilliation Current Medication List: was personally reviewed by me Blood Pressure Screening Patient's blood pressure: Normal blood pressure Blood pressure disposition: Did not require urgent referral Impression Primary Impression: Hyperglycemia Scribe Attestation The scribe's documentation has been prepared under my direction and personally reviewed by me in its entirety. I confirm that the note above accurately reflects all work, treatment, procedures, and medical decision making performed by me. Departure Information Dispostion Home / Self-Care Prescriptions Meclizine Hcl (MECLIZINE HCL) 25 Mg Tab 1 TAB PO TID Y for Dizziness or Vertigo for 10 Days, #30 TAB Prov: Ariel Bills MD 03/11/17 Referrals Gabbie Garcia M.D. (PCP) Patient Instructions ED Hyperglycemia Diabetic, My [facility] Additional Instructions Need follow up with PCP You have been examined and treated today on an emergency basis only. This is not a substitute for, or an effort to provide, complete comprehensive medical care. It is impossible to recognize and treat all injuries or illnesses in a single emergency department visit. It is therefore important that you follow up closely with Dr Garcia. Call as soon as possible for an appointment. Thank you for your time and consideration. I look forward to speaking with you again soon. Please don't hesitate to call us if you have any questions.
[2017-03-11] MEDS ORDERED: ONDANSETRON INJ 2 MG/ML 2 ML VIAL IV STA (19:09)
[2017-03-11] MEDS ORDERED: SODIUM CHLORIDE 0.9% 1000ML 1,000 ML IV STA ×2 (19:09→20:08)
[2017-03-11] MEDS ORDERED: INSULIN HUMAN REGULAR SC STA ×2 (19:09→20:57)
[2017-03-11] MEDS ORDERED: NovoLIN-R INSULIN PER UNIT CHARGE SC STA ×2 (19:09→21:16)
[2017-03-11] MEDS ORDERED: CANA1TAB3 PO (19:22)
[2017-03-11] MEDS ORDERED: POLYSOL21 OPB (19:24)
[2017-03-11 19:41] VITALS: O2SAT 93
[2017-03-11 19:46] LABS: URINE APPEARANCE CLEAR (CLEAR); URINE BILIRUBIN NEG (NEG); URINE COLOR YELLOW; URINE NITRITE NEG (NEG); URINE SPECIFIC GRAVITY 1.043 (1.000-1.030); UROBILINOGEN NEG (NEG)
[2017-03-11 19:47] LABS: MANUAL MICROSCOPIC REQUIRED? NO; REVIEW REQ? NO
[2017-03-11 19:48] LABS: BASO % 0.2 %; BASO ABS # 0.02 K/uL (0-0.2); COMPLETE YES; EOS % 1.5 %; HEMATOCRIT 47.5 % (37-47); IG% 0.3 %; LYMPH % 34.1 %; LYMPH ABS # 4.23 K/uL (1.2-3.4); MEAN CELL VOLUME 83.2 fL (80-100); MEAN CORPUSCULAR HEMOGLOBIN 27.8 pg (25-34); MEAN CORPUSCULAR HGB CONC 33.5 g/dl (32-36); MEAN PLATELET VOLUME 10.4 fL (7.4-10.4); MONO % 6.4 %; NEUT % 57.5 %; PLATELET COUNT 378 K/uL (130-400); RED BLOOD COUNT 5.71 M/uL (4.2-5.4)
[2017-03-11 19:52] LABS: ISTAT HEMOGLOBIN 16.7 g/dl (12.0-16.0); ISTAT IONIZED CALCIUM 1.21 mmol/l (1.12-1.32)
[2017-03-11] MEDS ORDERED: POTASSIUM CHLORIDE 10 MEQ TABCR PO STA (20:08)
[2017-03-11 20:27] LABS: BUN/CREATININE RATIO 15.6 (10-20); CALCIUM 9.6 mg/dl (8.5-10.1); CREATININE 1.2 mg/dl (0.60-1.20); POTASSIUM 3.6 mmol/L (3.5-5.1); THYROID STIMULATING HORMONE 1.14 uIu/ml (0.300-4.500)
[2017-03-11 20:43] LABS: BETA-HYDROXYBUTYRATE 1.22 mg/dL (0.2-2.81)
[2017-03-11] MEDS ORDERED: MECLIZINE HCL 25 MG TAB PO STA (21:54)
[2017-03-11] MEDS ORDERED: MECL1TAB42 PO (21:56)
[2017-03-11] MEDS ORDERED: MECLIZINE HCL 25MG HOME PACK PO ONE (22:00)
[2017-03-11 22:27] VITALS: BP 132/75; PULSE 75; O2SAT 99
== END 2017-03-11 22:30 | disposition home or self-care (01) ==
LOC: C.EDB 18:26
DX: E11.65 Type 2 diabetes mellitus with hyperglycemia (principal); M79.7 Fibromyalgia; Z87.442 Personal history of urinary calculi; E86.0 Dehydration; G47.30 Sleep apnea, unspecified; Z87.440 Personal history of urinary (tract) infections; F32.0 Major depressive disorder, single episode, mild; F17.210 Nicotine dependence, cigarettes, uncomplicated; Z82.49 Family history of ischemic heart disease and other diseases of the circulatory system; Z79.899 Other long term (current) drug therapy

== ENCOUNTER 2017-08-13 20:54 | Emergency (ER) | payer BC, OTHER ==
[~2017-08-13] VITALS: Ht 162.6 cm; Wt 59.3 kg
[~2017-08-13 20:54] MED LIST changes: -GLC850 PO; +METF850T10 PO; -ONDA4TAB10 SL; -ONDA4TAB46 PO; -PHEN1CAP PO; +PHEN30CA PO; +POLYSOL21 OPB
[2017-08-13 20:56] VITALS: TEMP 36.9; Ht 162.6 cm; Wt 59.3 kg
[2017-08-13] MEDS ORDERED: ONDA4TAB46 PO (21:14)
[2017-08-13] MEDS ORDERED: SODIUM CHLORIDE 0.9% 1000ML 2,000 ML IV STA (21:25)
[2017-08-13] MEDS ORDERED: ONDANSETRON INJ 2 MG/ML 2 ML VIAL IV STA (21:25)
[2017-08-13] MEDS ORDERED: FENTANYL CITRATE INJ 50 MCG/1 ML 2 ML VIAL IV STA (21:25)
--- NOTE | 2017-08-13 21:39 | EMERGENCY ROOM VISIT NOTE ---
History Report prepared by Phong: Sushma Rincon Under the Supervision of: Dr. Ryan Andrade M.D. First contact with patient: 21:09 Chief Complaint: VOMITING Stated Complaint: VOMITING, DIARRHEA, SEVERE ABDOMINAL PAIN Nursing Triage Summary: pt reports increased nausea and vomitting for the past "few weeks." was to PCP who ordered IV and PO prep for CT of ABD, was given today but told was tomorrow pt states she "cant wait that long." pt appears uncomfortable and guarding abdomen on both sides reports vomit tastes like "vinegar." "everytime I vomit, I have diarrhea." "My PCP was working me up for Lupus." History of Present Illness The patient is a 52 year old female who presents to the Emergency Room with complaints of severe persistent abdominal that began one day ago. The patient states that she has been experiencing nausea and diarrhea for about 6 weeks, noting that she is supposed to see her primary care physician for a CT scan tomorrow. Additionally, the patient reports that she has been evaluated for pelvic etiology for her symptoms and this has been excluded. She reports that she was waken in the middle of the night by her sharp abdominal pain, noting it sometimes radiates to her back. She notes that she took Zofran earlier today, which did not relieve her symptoms. The patient reports a history of an appendectomy and cholecystectomy. Source of History: patient Onset: one day ago Position: abdomen Symptom Intensity: severe Quality: sharp, other (abdominal pain) Timing: other (persistent ) Associated Symptoms: + nausea, + diarrhea Note: Associated symptom includes: pain sometimes radiating to her back. Review of Systems See HPI for pertinent positives and negatives. A total of ten systems were reviewed and were otherwise negative. Past Medical & Surgical Medical Problems: (1) Dehydration (2) Depressive disorder (3) Diabetes mellitus type 2 (4) Ectopic (5) Fatty liver (6) Fibromyalgia (7) Headache (8) Heart palpitations (9) Heart palpitations (10) Hyperglycemia (11) Kidney stones (12) Near syncope (13) Pyelonephritis (14) Sleep apnea (15) Syncope (16) Syncope (17) Syncope (18) UTI (urinary tract infection) Surgical Problems: (1) History of cholecystectomy (2) Hx of appendectomy Family History Heart disease Social History Smoking Status: Never Smoker Alcohol Use: occasionally Drug Use: none Marital Status: Housing Status: lives with family Occupation Status: unemployed Current/Historical Medications Scheduled Famotidine (Pepcid), 20 MG PO BID Glimepiride (Glimepiride), 4 MG PO BID Metformin HCl (Metformin HCl), 850 MG PO TID Sitagliptin (Januvia), 1 TAB PO DAILY Scheduled PRN Ondansetron Hcl (Zofran), 4 MG PO Q4H PRN for Nausea Tramadol HCl (Tramadol HCl), 50 MG PO Q8 PRN for Pain Allergies Coded Allergies: Sulfa Antibiotics (Verified Allergy, Intermediate, HIVES, 03/11/17) Physical Exam Vital Signs Date Time Temp Pulse Resp B/P (MAP) Pulse Ox O2 Delivery O2 Flow Rate FiO2 08/14/17 00:29 97 17 99 08/13/17 23:30 90 20 134/78 97 Room Air 08/13/17 20:56 36.9 133 18 151/90 98 Room Air Physical Exam GENERAL: Awake, alert, uncomfortable-appearing, but in no distress HENT: Dry mucous membranes. Normocephalic, atraumatic. Oropharynx unremarkable. EYES: Normal conjunctiva. Sclera non-icteric. NECK: Supple. No nuchal rigidity. FROM. No JVD. RESPIRATORY: Clear to auscultation. CARDIAC: Regular rate, normal rhythm. Extremities warm and well perfused. Pulses equal. ABDOMEN: Mild right flank and right lower quadrant tenderness to palpation. No peritoneal signs. No rebound or guarding. No masses. RECTAL: Deferred. MUSCULOSKELETAL: Chest examination reveals no tenderness. The back is symmetrical on inspection without obvious abnormality. There is no CVA tenderness to palpation. No joint edema. LOWER EXTREMITIES: Calves are equal size bilaterally and non-tender. No edema. No discoloration. NEURO: Normal sensorium. No sensory or motor deficits noted. SKIN: No rash or jaundice noted. Medical Decision & Procedures ER Provider Diagnostic Interpretation: Radiology results as stated below per my review and radiologist interpretation: CT OF THE ABDOMEN AND PELVIS WITH CONTRAST CLINICAL HISTORY: Right flank pain. COMPARISON STUDY: CT of the abdomen and pelvis December 12, 2016. TECHNIQUE: Following IV administration of 116 mL of Optiray-320, axial images of the abdomen and pelvis were obtained from the lung bases to the proximal femurs. Images were reviewed in the axial, sagittal, and coronal planes. IV contrast was administered without complication. A dose lowering technique was utilized adhering to the principles of ALARA. CT DOSE: 510.16 mGy.cm FINDINGS: Fatty infiltration of the liver is noted. No biliary ductal dilatation status post cholecystectomy. A 7 mm hypodense right hepatic dome focus is unchanged since CT of November 22, 2012. This is benign given stability. The spleen, adrenal glands and pancreas are normal. There is a punctate left renal calculus. There are no ureteral calculi and there is no hydronephrosis or hydroureter. The appendix is not visualized. Colon is mildly fluid-filled. There is no evidence for a bowel obstruction. A small fat-containing umbilical hernia is noted. Intrauterine device is in place. There are no suspicious skeletal lesions. A 2.1 cm water attenuation lesion arises from the right ovary. IMPRESSION: 1. No evidence for a bowel obstruction. No bowel wall thickening. 2. Mildly fluid-filled colon which suggests a diarrheal state. 3. Punctate left renal calculus. No ureteral calculi or hydronephrosis. 4. 2.1 cm lesion arising from the right ovary which likely reflects a cyst or dominant follicle. A follow-up pelvic ultrasound in 6 weeks to ensure resolution is recommended. Electronically signed by: Michael Jolly M.D. 08/13/2017 10:42 PM Dictated Date/Time: 08/13/2017 10:35 PM Laboratory Results 08/13/17 21:06 Red Blood Count 5.70, Mean Corpuscular Volume 84.0, Mean Corpuscular Hemoglobin 29.1, Mean Corpuscular Hemoglobin Concent 34.7, Mean Platelet Volume 10.6, Neutrophils (%) (Auto) 59.5, Lymphocytes (%) (Auto) 31.8, Monocytes (%) (Auto) 6.4, Eosinophils (%) (Auto) 2.0, Basophils (%) (Auto) 0.1, Neutrophils # (Auto) 8.49, Lymphocytes # (Auto) 4.54, Monocytes # (Auto) 0.91, Eosinophils # (Auto) 0.29, Basophils # (Auto) 0.02 08/13/17 21:06 Test 08/13/17 21:06 08/13/17 21:43 08/13/17 22:10 08/13/17 23:30 White Blood Count 14.28 K/uL (4.8-10.8) Red Blood Count 5.70 M/uL (4.2-5.4) Hemoglobin 16.6 g/dL (12.0-16.0) Hematocrit 47.9 % (37-47) Mean Corpuscular Volume 84.0 fL (80-100) Mean Corpuscular Hemoglobin 29.1 pg (25-34) Mean Corpuscular Hemoglobin Concent 34.7 g/dl (32-36) Platelet Count 385 K/uL (130-400) Mean Platelet Volume 10.6 fL (7.4-10.4) Neutrophils (%) (Auto) 59.5 % Lymphocytes (%) (Auto) 31.8 % Monocytes (%) (Auto) 6.4 % Eosinophils (%) (Auto) 2.0 % Basophils (%) (Auto) 0.1 % Neutrophils # (Auto) 8.49 K/uL (1.4-6.5) Lymphocytes # (Auto) 4.54 K/uL (1.2-3.4) Monocytes # (Auto) 0.91 K/uL (0.11-0.59) Eosinophils # (Auto) 0.29 K/uL (0-0.5) Basophils # (Auto) 0.02 K/uL (0-0.2) RDW Standard Deviation 42.9 fL (36.4-46.3) RDW Coefficient of Variation 13.9 % (11.5-14.5) Immature Granulocyte % (Auto) 0.2 % Immature Granulocyte # (Auto) 0.03 K/uL (0.00-0.02) Erythrocyte Sedimentation Rate 21 mm/hr (0-21) Anion Gap 8.0 mmol/L (3-11) Est Creatinine Clear Calc Drug Dose 63.2 ml/min Estimated GFR () 85.2 Estimated GFR (Non- 73.5 BUN/Creatinine Ratio 16.6 (10-20) Calcium Level 9.1 mg/dl (8.5-10.1) Total Bilirubin 0.7 mg/dl (0.2-1) Direct Bilirubin 0.1 mg/dl (0-0.2) Aspartate Amino Transf (AST/SGOT) 42 U/L (15-37) Alanine Aminotransferase (ALT/SGPT) 75 U/L (12-78) Alkaline Phosphatase 89 U/L (45-117) C-Reactive Protein 0.91 mg/dl (0-0.29) Total Protein 8.3 gm/dl (6.4-8.2) Albumin 3.8 gm/dl (3.4-5.0) Lipase 230 U/L (73-393) Lactic Acid Level 1.8 mmol/L (0.4-2.0) Urine Color YELLOW Urine Appearance CLEAR (CLEAR) Urine pH 5.5 (4.5-7.5) Urine Specific Ringle 1.027 (1.000-1.030) Urine Protein NEG (NEG) Urine Glucose (UA) NEG (NEG) Urine Ketones NEG (NEG) Urine Occult Blood NEG (NEG) Urine Nitrite NEG (NEG) Urine Bilirubin NEG (NEG) Urine Urobilinogen NEG (NEG) Urine Leukocyte Esterase NEG (NEG) Influenza Type A Antigen Neg for Influ A (NEG) Influenza Type B Antigen Neg for Influ B (NEG) Laboratory results reviewed by me Medications Administered Medications (Trade) Dose Ordered Sig/Vishal Route Start Time Stop Time Status Last Admin Dose Admin Sodium Chloride 2,000 ml @ 999 mls/hr Q2H1M STAT IV 08/13/17 21:25 08/13/17 23:25 DC 08/13/17 21:44 999 MLS/HR Ondansetron HCl (Zofran Inj) 4 mg NOW STAT IV 08/13/17 21:25 08/13/17 21:33 DC 08/13/17 21:43 4 MG Fentanyl Citrate (Fentanyl Inj) 50 mcg NOW STAT IV 08/13/17 21:25 08/13/17 21:33 DC 08/13/17 21:43 50 MCG Sodium Chloride 1,000 ml @ 999 mls/hr Q1H1M STAT IV 08/13/17 23:13 08/14/17 00:13 DC 08/13/17 23:26 999 MLS/HR Ketorolac Tromethamine (Toradol Inj) 15 mg NOW STAT IV 08/13/17 23:17 08/13/17 23:19 DC 08/13/17 23:26 15 MG Famotidine (Pepcid Tab) 20 mg NOW ONCE PO 08/14/17 00:30 08/14/17 00:31 DC 08/14/17 00:28 20 MG ED Course 2116: The patient was evaluated in room B12. A complete history and physical exam was performed. 2317: I reevaluated the patient, who states that she is feeling much better. I updated her on her CT scan results. 0012: I reevaluated the patient. Discussed results and discharge instructions: she verbalized understanding and agreement. The patient is ready for discharge. Medical Decision I reviewed the patient's past medical history, medications, and the nursing notes as described above. Differential diagnosis: Etiologies such as appendicitis, diverticulitis, PUD, biliary pathology, UTI, pancreatitis, obstruction, mesenteric ischemia, aortic pathology, infections, inflammatory bowel disease, renal colic, as well as others were entertained. The patient is a 52-year-old woman with a past medical history of remote cholecystectomy and appendectomy and NIDM2 now presents emergency department for right flank/abdominal in the setting of several months of similar sx that has been evaluated by her PCP and [employer] per HPI. On arrival, patient is uncomfortable but in no acute distress, afebrile with stable vital signs. On exam, the patient has mild right flank and right lower quadrant tenderness to palpation no peritoneal signs. WBC 14 is nonspecific. Lactate and esr within normal limits. CRP is marginally elevated. CT scan of the abdomen and pelvis demonstrates a fluid-filled colon consistent with the patient's diarrhea but otherwise no acute findings. Sx possibly related to a viral gastroenteritis. Patient feeling somewhat improved after IV fluids, analgesia, antiemetics. We will attempt a trial of Pepcid as well. Patient already has a prescription for Zofran. Findings and plan for follow-up reviewed with patient. Patient agreeable and d/c'd per discharge instructions. Medication Reconcilliation Current Medication List: was personally reviewed by me Blood Pressure Screening Patient's blood pressure: Normal blood pressure Blood pressure disposition: Did not require urgent referral Impression Primary Impression: Right flank pain Scribe Attestation The scribe's documentation has been prepared under my direction and personally reviewed by me in its entirety. I confirm that the note above accurately reflects all work, treatment, procedures, and medical decision making performed by me. Departure Information Dispostion Home / Self-Care Prescriptions Famotidine (PEPCID) 20 Mg Tab 20 MG PO BID for 7 Days, #14 TAB Prov: Ryan Andrade M.D. 08/14/17 Referrals No Doctor, Assigned (PCP) Forms HOME CARE DOCUMENTATION FORM, IMPORTANT VISIT INFORMATION Patient Instructions ED Flank Pain Uncertain Cause, My [facility] Additional Instructions Please follow up with your primary care physician in the next 1-3 days for re- evaluation. The cause of your symptoms is unclear at this time. Otherwise, your exam, lab results, and CT scan did not show signs of an emergent condition at this time. Acetaminophen or ibuprofen for pain and fevers as needed. Zofran as needed for nausea. Pepcid 20mg twice daily for acid reduction for possible gastritis component. Drink plenty of fluids to ensure hydration. Return to the emergency department for worsening symptoms as described in the accompanying instructions.
[2017-08-13 21:44] LABS: BASO % 0.1 %; BASO ABS # 0.02 K/uL (0-0.2); EOS ABS # 0.29 K/uL (0-0.5); HEMATOCRIT 47.9 % (37-47); HEMOGLOBIN 16.6 g/dL (12.0-16.0); IG# 0.03 K/uL (0.00-0.02); LYMPH % 31.8 %; LYMPH ABS # 4.54 K/uL (1.2-3.4); MEAN CORPUSCULAR HEMOGLOBIN 29.1 pg (25-34); MEAN CORPUSCULAR HGB CONC 34.7 g/dl (32-36); MEAN PLATELET VOLUME 10.6 fL (7.4-10.4); MONO % 6.4 %; MONO ABS # 0.91 K/uL (0.11-0.59); NEUT % 59.5 %; NEUT ABS # 8.49 K/uL (1.4-6.5); PLATELET COUNT 385 K/uL (130-400); RED CELL DISTRIBUTION WIDTH CV 13.9 % (11.5-14.5); RED CELL DISTRIBUTION WIDTH SD 42.9 fL (36.4-46.3); WHITE BLOOD COUNT 14.28 K/uL (4.8-10.8)
[2017-08-13 22:02] LABS: ALBUMIN 3.8 gm/dl (3.4-5.0); CALCIUM 9.1 mg/dl (8.5-10.1); CREATININE 0.9 mg/dl (0.60-1.20); POTASSIUM 3.4 mmol/L (3.5-5.1)
[2017-08-13 22:05] LABS: TOTAL PROTEIN 8.3 gm/dl (6.4-8.2)
[2017-08-13] MEDS ORDERED: OPTIRAY 320 IV PRN (22:15)
[2017-08-13] MEDS ORDERED: GLIM4TAB2 PO (22:25)
--- NOTE | 2017-08-13 22:43 | DIAGNOSTIC IMAGING REPORT ---
CT OF THE ABDOMEN AND PELVIS WITH CONTRAST CLINICAL HISTORY: Right flank pain. COMPARISON STUDY: CT of the abdomen and pelvis December 12, 2016. TECHNIQUE: Following IV administration of 116 mL of Optiray-320, axial images of the abdomen and pelvis were obtained from the lung bases to the proximal femurs. Images were reviewed in the axial, sagittal, and coronal planes. IV contrast was administered without complication. A dose lowering technique was utilized adhering to the principles of ALARA. CT DOSE: 510.16 mGy.cm FINDINGS: Fatty infiltration of the liver is noted. No biliary ductal dilatation status post cholecystectomy. A 7 mm hypodense right hepatic dome focus is unchanged since CT of November 22, 2012. This is benign given stability. The spleen, adrenal glands and pancreas are normal. There is a punctate left renal calculus. There are no ureteral calculi and there is no hydronephrosis or hydroureter. The appendix is not visualized. Colon is mildly fluid-filled. There is no evidence for a bowel obstruction. A small fat-containing umbilical hernia is noted. Intrauterine device is in place. There are no suspicious skeletal lesions. A 2.1 cm water attenuation lesion arises from the right ovary. IMPRESSION: 1. No evidence for a bowel obstruction. No bowel wall thickening. 2. Mildly fluid-filled colon which suggests a diarrheal state. 3. Punctate left renal calculus. No ureteral calculi or hydronephrosis. 4. 2.1 cm lesion arising from the right ovary which likely reflects a cyst or dominant follicle. A follow-up pelvic ultrasound in 6 weeks to ensure resolution is recommended. Electronically signed by: Michael Jolly M.D. 08/13/2017 10:42 PM Dictated Date/Time: 08/13/2017 10:35 PM
[2017-08-13] MEDS ORDERED: SODIUM CHLORIDE 0.9% 1000ML 1,000 ML IV STA (23:13)
[2017-08-13] MEDS ORDERED: KETOROLAC TROMETHAMINE 30 MG/ML VIAL IV STA (23:17)
[2017-08-13 23:30] VITALS: BP 134/78
[2017-08-13 23:58] LABS: INFLUENZA B ANTIGEN Neg for Influ B (NEG)
[2017-08-14] MEDS ORDERED: FAMO20TA9 PO (00:21)
[2017-08-14 00:29] VITALS: PULSE 97; O2SAT 99
[2017-08-14] MEDS ORDERED: FAMOTIDINE 20 MG TAB PO ONE (00:30)
== END 2017-08-14 00:35 | disposition home or self-care (01) ==
LOC: C.EDB 20:55
DX: R10.31 Right lower quadrant pain (principal); R11.2 Nausea with vomiting, unspecified; R19.7 Diarrhea, unspecified; F32.9 Major depressive disorder, single episode, unspecified; E11.9 Type 2 diabetes mellitus without complications; K76.0 Fatty (change of) liver, not elsewhere classified; M79.7 Fibromyalgia; Z87.442 Personal history of urinary calculi; G47.30 Sleep apnea, unspecified; Z87.440 Personal history of urinary (tract) infections; Z90.49 Acquired absence of other specified parts of digestive tract; Z79.899 Other long term (current) drug therapy; Z88.2 Allergy status to sulfonamides

== ENCOUNTER 2023-11-06 00:12 | Inpatient (IN) ==
[2023-11-06] MEDS: SODIUM CHLORIDE 0.9% 500 ML IV STA (00:52)
[2023-11-06] MEDS: KETOROLAC TROMETHAMINE 15 MG/ML VIAL IV STA (00:53)
[2023-11-06] MEDS: ONDANSETRON INJ 2 MG/ML 2 ML VIAL IV STA (00:53)
[2023-11-06] MEDS: MoRPHine SULFATE 4 MG/ML 1 ML CARP\\VIAL IV STA (00:53)
[2023-11-06 01:13] LABS: Basophils # (auto) 0.07 K/uL (0.00-0.20); Basophils % (auto) 0.5 %; Eosinophils # (auto) 0.12 K/uL (0.00-0.50); Eosinophils % (auto) 0.8 %; Hemoglobin 15.7 g/dl (12.0-16.0); Immature Granulocytes # (auto) 0.08 K/uL (0.01-0.20); Immature Granulocytes % (auto) 0.6 %; Lymphocytes # (auto) 1.71 K/uL (1.20-3.40); Mean Corpuscular Hemoglobin 28.4 pg (25.0-34.0); Mean Corpuscular Hgb Conc 34.1 g/dL (32.0-36.0); Mean Corpuscular Volume 83.3 fL (80.0-100.0); Mean Platelet Volume 9.5 fL (9.4-12.4); Monocytes # (auto) 0.71 K/uL (0.11-0.59); Neutrophils # (auto) 11.57 K/uL (1.40-6.50); Neutrophils % (auto) 81.1 %; Platelet Count 367 K/uL (130-400); RDW Coefficient of Variation 13.9 % (11.5-14.5); RDW Standard Deviation 42.4 fL (36.4-46.3); Red Blood Count 5.52 M/uL (4.20-5.40); White Blood Count 14.26 K/ul (4.8-10.8)
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
[2023-11-06 01:21] LABS: Appearance Urine Turbid (Clear); Bacteria Urine Automated None Seen (None Seen); Bilirubin Urine 1+ (Negative); Blood Urine 3+ (Negative); Cast Urine Automated 0-2 /lpf (0-2); Color Urine Orange; Glucose Urine UA Negative (Negative); Ketones Urine 1+ (Negative); Leukocyte Esterase Urine 1+ (Negative); Nitrite Urine Negative (Negative); Protein Urine 2+ (Negative); RBC Urine Automated >20 /hpf (0-2); Specific Gravity Urine 1.027 (1.000-1.030); Urobilinogen Urine Negative (Negative); pH Urine 5.5 (4.5-7.5)
[2023-11-06 01:30] LABS: Albumin Globulin Ratio 1.2 (0.9-2); Albumin Level 4.2 gm/dl (3.4-5.0); BUN Creatinine Ratio 9.3 (10-20); Calcium 9.8 mg/dl (8.6-10.3); Creatinine Clr Calc Pharmacy 53.7 ml/min; Est GFR (African American) 66.3 ml/min; Est GFR (Non-African American) 57.2 ml/min; Globulin 3.6 gm/dl (2.5-4.0); Potassium 3.6 mmol/L (3.5-5.1); Total Protein 7.8 gm/dl (6.0-8.3)
[2023-11-06] MEDS: HYDROmorphone INJ 0.5 MG/0.5 ML SYR IV PRN (01:35)
[2023-11-06 01:40] LABS: Calcium Oxalate Crystals Urine Present (None Prsent)
--- NOTE | 2023-11-06 02:46 | CT Scan Report ---
Exam(s): CT ABDOMEN + PELVIS Without Contrast EXAM: CT Abdomen and Pelvis Without Intravenous Contrast CLINICAL HISTORY: flank pain. TECHNIQUE: Axial computed tomography images of the abdomen and pelvis without intravenous contrast. CTDI is 15.5 mGy and DLP is 754.89 mGy-cm. Automated exposure control was utilized for the study. A dose lowering technique was utilized adhering to the principles of ALARA. COMPARISON: CT abdomen and pelvis without contrast dated 04/29/2021 FINDINGS: Lung bases: Unremarkable. No mass. No consolidation. ABDOMEN: Liver: Unremarkable. Gallbladder and bile ducts: Stable cholecystectomy. No ductal dilation. Pancreas: Unremarkable. No ductal dilation. Spleen: Unremarkable. No splenomegaly. Adrenals: Unremarkable. No mass. Kidneys and ureters: 5.4 mm distal right ureteral stone noted at the UVJ with mild to moderate right hydroureteronephrosis. No additional nephrolithiasis identified. No left-sided hydronephrosis. Stomach and bowel: No evidence for bowel obstruction. Evaluation of bowel mucosa is limited without contrast; however, no definite asymmetry is identified. Mild stool burden. PELVIS: Appendix: No findings to suggest acute appendicitis. Bladder: Bladder is decompressed, limiting evaluation. No additional bladder stones noted. Reproductive: Unremarkable as visualized. ABDOMEN and PELVIS: Intraperitoneal space: Unremarkable. No free air. No significant fluid collection. Bones/joints: No acute fracture. No dislocation. Soft tissues: Unremarkable. Vasculature: Unremarkable. No abdominal aortic aneurysm. Lymph nodes: Unremarkable. No enlarged lymph nodes. IMPRESSION: 5.4 mm distal right ureteral stone noted at the UVJ with mild to moderate right hydroureteronephrosis. Electronically signed by: Scot Valladares MD 11/06/23 02:44 AM
[2023-11-06] MEDS: TAMSULOSIN HCL 0.4 MG CAP PO ONE (03:02)
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
[2023-11-06] MEDS ORDERED: PROCHLORPERAZINE 1 ML IV ONE (07:52)
[2023-11-06] MEDS: PROCHLORPERAZINE 5 MG in SYRINGE 4 ML IV STA (08:17)
[2023-11-06] MEDS ORDERED: GLUCOSE 40% GEL 15 GM TUBE PO PRN (08:35)
[2023-11-06] MEDS ORDERED: MoRPHine SULFATE 2 MG/ML CARP IV PRN (08:35)
[2023-11-06] MEDS ORDERED: GLUCAGON FOR INJ 1 MG VIAL SQ PRN (08:35)
[2023-11-06] MEDS ORDERED: DEXTROSE 50% 50 ML SYRINGE IV PRN (08:35)
[2023-11-06] MEDS ORDERED: DOCUSATE SODIUM 100 MG CAP PO PRN (08:35)
[2023-11-06] MEDS ORDERED: ALPRAZolam 0.5 MG TABLET PO PRN (08:35)
[2023-11-06] MEDS ORDERED: GLUCOSE 10 TAB/TUBE PO PRN (08:35)
[2023-11-06] MEDS ORDERED: CARBOHYDRATES FOR HYPOGLYCEMIA PO PRN (08:35)
[2023-11-06] MEDS ORDERED: POLYETHYLENE (MIRALAX) 17 GM PACK PO PRN (08:35)
[2023-11-06] MEDS: LACTATED RINGER'S 1,000 ML IV SCH (10:00)
[2023-11-06] MEDS ORDERED: Nursing to Pharmacy Communication SCH ×3 (10:15→12:30)
[2023-11-06] MEDS: INSULIN ASPART PER UNIT CHARGE SC SCH ×2 (10:18→13:26)
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
[2023-11-06] MEDS: MoRPHine SULFATE 4 MG/ML 1 ML CARP\\VIAL IV PRN (11:01)
[2023-11-06] MEDS: LANTUS PER UNIT CHARGE SQ SCH (11:38)
[2023-11-06] MEDS: busPIRone 15 MG TAB PO SCH (11:39)
[2023-11-06] MEDS: TAMSULOSIN HCL 0.4 MG CAP PO SCH (11:39)
[2023-11-06] MEDS: rOPINIRole HCL 2 MG TABLET PO SCH (11:39)
[2023-11-06] MEDS: buPROPion SR 100 MG TABCR PO SCH (11:39)
[2023-11-06] MEDS ORDERED: INSULIN ASPART PER UNIT CHARGE SC SCH (12:00)
[2023-11-06] MEDS: PANTOprazole 40 MG TAB PO SCH (13:23)
[2023-11-06] MEDS: ACETAMINOPHEN 325 MG TAB PO PRN (16:35)
--- NOTE | 2023-11-06 16:38 | Electrocardiogram Report ---
Test Reason : Blood Pressure : / mmHG Vent. Rate : 067 BPM Atrial Rate : 067 BPM P-R Int : 174 ms QRS Dur : 090 ms QT Int : 454 ms P-R-T Axes : 046 006 035 degrees QTc Int : 479 ms Normal sinus rhythm Normal ECG When compared with ECG of 04-MAY-2021 12:29, No significant change was found Confirmed by Eliel Bailey ([id number]) on 11/06/2023 4:38:33 PM Referred By: REFERRED SELF Confirmed By:Eliel Bailey
[2023-11-06] MEDS ORDERED: oxyCODONE HCL IR 5 MG TAB (IMMEDIATE RELEASE) PO PRN (18:07)
--- NOTE | 2023-11-06 18:13 | History & Physical Bridge Note ---
Date of Service November 06, 2023 History & Physical Bridge Note I have examined the patient, reviewed the History & Physical and in the interval since the performance of the History & Physical I have noted the following changes of clinical significance: Pt still having right flank pain but it is improved with IV pain meds. Had some nausea but improved with meds, ate a little bit of food today. Reports she vomited and had diarrhea all day yesterday. She wants to try to avoid ureteral stent placement. making urine and is now clear yellow rather than brown in color. Vitals reviewed NAD, AAOx3 RRR no mgr CTAB no wcr Abd +BS soft +TTP right flank, soft Ext no edema Labs reviewed 58 yo female here with right ureterolithiasis with moderate hydronephrosis With reactive leukocytosis but no fevers and UA contaminated with epis, no bacteria, doubt UTI COntinue FLomax, increase IVFs to 150mL/hr Added compazine prn nausea add on po oxycodone to try to see if controls pain for home use, continue IV morphine for breakthrough pain Appreciate Urology consult NPO after midnight in case of need for stent tomorrow
[2023-11-06] MEDS: ESCITALOPRAM OXALATE 20 MG TAB PO SCH (20:48)
[2023-11-06] MEDS: rOPINIRole HCL 0.25 MG TABLET PO SCH (20:48)
--- OUTSIDE RECORDS SUMMARY | 2023-11-06 21:05 | External Medical Summary | Summary of Care ---
Author Name Unknown Organization [facility] Address [address] [facility] [place] [address] Phone [phone] Care Team Providers Care Tugboat Captain Name Role Phone Asha Dobbs PA-C Primary Care Provide r Reason for Visit * Reason Comments Cold Symptoms Encounter Details Date Type Department Care Team (Latest Contact Info) Description 08/29/2023 11:50 AM EDT [facility] Visit [facility] Kath [place]ne [address] [place] [id number] Rebekah Cerda PA-C [address] [place] [address] Upper respiratory tract infection, unspecified type* Allergies Active Allergy Reactions Criticality Noted Date Comments Metformin High 11/21/2022 Hives Nitrofurantoin Itching,Rash 10/31/2021 hives Sulfa Antibiotics Hives 09/08/2008 Drug dermatitis documented as of this encounter (statuses as of 08/29/2023) Medications Medication Sig Dispensed Refills Start Date End Date Status aspirin enteric coated 81 MG TBEC Take 1 Tablet by mouth in the morning. 100 Tab 3 02/08/2016 Active omeprazole (PRILOSEC) 20 MG CPDR Take 1 Cap by mouth daily. 30 Cap 5 09/10/2017 Active Glucose Blood (ONETOUCH ULTRA BLUE) STRPIndications:Type 2 diabetes mellitus with hemoglobin A1c goal of less than 7.0% (HCC) USE UP TO FOUR TIMES A DAY DIRECTED 100 Strip 3 04/09/2018 Active Glucose Blood (ACCU-CHEK SHIV PLUS) STRPIndications:Type 2 diabetes mellitus with hemoglobin A1c goal of less than 8.0% (HCC) Use to test blood sugar 4 times daily. Dx: E11.9 400 Strip 3 08/08/2018 Active Blood Glucose Monitoring Suppl (ACCU-CHEK SHIV PLUS) w/Device KITIndications:Type 2 diabetes mellitus with hemoglobin A1c goal of less than 8.0% (HCC) Use to test blood sugar 4 times daily. Dx: 1 Kit 0 08/08/2018 Active ONETOUCH DELICA LANCETS FINE MISCIndications:Type 2 diabetes mellitus with hemoglobin A1c goal of less than 8.0% (HCC) USE UP TO FOUR TIMES A DAY DIRECTED 100 Each 11 08/08/2018 Active valACYclovir (VALTREX) 1000 MG TabletIndications:Her pes simplex conjunctivitis of right eye Take 1 Tab by mouth as needed (cold sore). 21 Tab 0 02/04/2019 Active escitalopram (LEXAPRO) 10 MG Tablet Take 1 Tablet by mouth in the morning. 5 03/16/2019 Active meclizine (ANTIVERT) 25 MG Tablet Take 1 Tablet by mouth as needed. 0 06/05/2019 Active ACCU-CHEK SHIV PLUS STRP USE TO TEST BLOOD SUGAR 4 TIMES DAILY. DX: E11.9 100 Strip 55 08/24/2019 Active rOPINIRole (REQUIP) 0.25 MG Tablet Take 1 Tablet by mouth at bedtime. 0 11/17/2019 Active clobetasol propionate (TEMOVATE) 0.05 % ointment APPLY TOPICALLY TWICE DAILY (THIN FILM TO VULVA) FOR 14 DAYS 0 11/19/2019 Active ondansetron (ZOFRAN) 4 MG TabletIndications:[place] sea with vomiting TAKE 2 TABLETS 3 TIMES A DAY NEEDED 18 Tab 6 12/08/2019 Active glimepiride (AMARYL) 4 MG Tablet TAKE 1 TABLET BY MOUTH EVERY DAY 30 Tab 3 12/31/2019 Active ALPRAZolam 0.5 MG Oral Tablet (xaNAX) Start: 12/14/20 16:10:00 EDT, See Instructions, Disp# 30 tab, Take 0.5 to 1 tab PO daily PRN anxiety, PRN: as needed for anxiety, Pharmacy: [facility]/pharmacy #[id number] 12/14/2020 Active Promethazine HCl 25 MG Oral Tablet (Phenergan) 1 Tablet. 0 12/14/2020 Active Phentermine HCl 37.5 MG Oral Capsule Take by mouth 1 Capsule in the morning. 30 Capsule 1 08/10/2021 Active Dexcom G7 Hothouse Worker Device Start: 11/05/22 8:21:00 EDT, DEXCOM G7 LEAD GENERATION REPRESENTATIVE, See Instructions, Disp# 1 unknown unit, Refills: 0, USE DIRECTED, Pharmacy [id number] 10/04/2022 Active Dexcom G7 Sensor Start: 11/05/22 10:54:00 EDT, See Instructions, Disp# 4 each, Refills: 11, apply 1 sensor every 10 days, Pharmacy: [facility]/pharmacy #[id number] 11/05/2022 Active Continuation of patient use of medical marijuana is approved Start: 04/04/21 15:08:00 EDT, 1 inh, inhaled, qhs 0 04/04/2021 Active documented as of this encounter (statuses as of 08/29/2023) Active Problems Problem Noted Date Diagnosed Date Calculus of kidney 11/21/2022 Chronic interstitial cystitis 11/21/2022 Herpes labialis 11/21/2022 History of appendectomy 11/21/2022 History of cholecystectomy 11/21/2022 Lichen sclerosus et atrophicus of the vulva 12/2022 Peripheral nerve disease 11/21/2022 Prolonged QT interval 11/21/2022 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 Thrombosed external hemorrhoids 04/21/2010 Obstructive sleep apnea 12/15/2009 Overview: AHI 12.8/hr (02/03/2007) - CPAP 7 cwp ((11/13/2008) ICD-10 update of inactive term Periodic limb movement disorder 12/15/2009 Female stress incontinence 12/15/2009 Restless leg syndrome 09/12/2009 Fibromyalgia 01/09/2002 STAEATOHEPATITIS 08/07/1999 Endometriosis 08/07/1999 Polycystic ovaries 08/07/1999 Type 2 diabetes mellitus wit h hemoglobin A1c goal of less than 8.0% Overview: ICD-10 update of inactive term documented as of this encounter (statuses as of 08/29/2023) Resolved Problems Problem Noted Date Diagnosed Date Resolved Date Type 2 diabetes mellitus wit h hemoglobin A1c goal of less than 7.0% 12/15/2009 04/11/2012 Overview: ICD-10 update of inactive term Major depressive disorder 12/15/2009 Overview: ICD-10 update of inactive term Hemorrhage of rectum and anus 12/15/2009 11/21/2022 Obesity, Class I, BMI 30.0-3 4.9 (see actual BMI) 12/15/2009 09/27/2017 Excessive menstruation 12/15/200911/21 Sleep apnea 03/13/2007 12/15/2009 ADVANCE DIRECTIVE INFORMATION 11/17/2004 12/15/2009 Overview: No, Advance Directive brochure given to patient at prior appointment. Calculus of ureter 08/07/1999 3 Type 2 diabetes mellitus wit h hemoglobin A1c goal of 7.0%-8.0% 01/07/2014 Overview: ICD-10 update of inactive term Type 2 diabetes mellitus wit h hemoglobin A1c goal of less than 8.0% 04/25/2017 Overview: ICD-10 update of inactive term documented as of this encounter (statuses as of 08/29/2023) Immunizations Name Administration Dates Next Due HEP A - Hepatitis A (Adult > 18 yrs) 05/07/2003 11/05/2003 Hepatitis B, 20+ yrs 01/05/2016,01/07/2014,05/0706/06/2003 MMR - Measles/Mumps/Rubella Vaccine 02/02/2009 Pneumococcal Polysaccharide PPV23 (Pneumovax) 01/11/2010 TD, Preservative Free 12/15/2006 TDAP (age 10 and older)(Boostrix) 01/07/2014 documented as of this encounter Social History Tobacco Use Types Packs/Day Years Used Date Smoking Tobacco: Former Cigarettes 5 0 07/31/1999 - 07/31/2004 Smokeless Tobacco: Never Tobacco Cessation:Counseling Given: Not Answered Comments:occas Alcohol Use Standard Drinks/Week Comments Yes 0 (1 standard drink = 0.6 oz pur e alcohol) once or twice a year PHQ-2 Answer Date Recorded PHQ-2 Score 9 11/07/2018 Sex and Gender Information Value Date Recorded Sex Assigned at Female 11/07/2018 12:44 PM EDT Gender Identity Female 11/07/2018 12:44 PM EDT Sexual Orientation Straight 11/07/2018 12 :44 PM EDT Job Start Date Occupation Industry Not on file Not on file Not on file documented as of this encounter Last Filed Vital Signs Vital Sign Reading Time Taken Comments Blood Pressure 126/72 08/29/2023 11:34 AM EDT Pulse 86 08/29/2023 11:34 AM EDT Temperature 37.8 C (100 F) 08/29/2023 11:34 AM ED T Respiratory Rate 16 08/29/2023 11:34 AM EDT Oxygen Saturation 100% 08/29/2023 11:34 AM EDT Inhaled Oxygen Concentration - - Weight 67.1 kg (148 lb) 08/29/2023 11:34 AM EDT Height 162.6 cm (5' 4") 08/29/2023 11:34 AM EDT Body Mass Index 25.4 08/29/2023 11:34 AM EDT documented in this encounter Patient Instructions * Patient Instructions* Rebekah Cerda PA-C - 08/29/2023 11:47 AM EDT What is an Upper Respiratory Infection URI)? An upper respiratory Infections (URI) is also known as the common cold or nasopharyngitis. The mostcommon cause of a URI is a virus. These viruses tend to circulate more in the winter season and arespread by person to person contact. There are no vaccinations against the common viruses that causeURIs. There are no antibiotic drugs that help treat a URI. The most effective method for avoiding Matthew is hand washing and avoidance of close contact with people who are sick. When You Have an Upper Respiratory Infection Your upper airways (nose, throat, bronchi) are usually reacting to a viral infection. The main response of your body to the infection is called "inflammation", and this results in secretion of mucus and irritation of the airways. Your body's response may be to cough and/or sneeze. This can help clear out the fluid and the infection. Dark nasal mucous does not mean that you have a bacterial infection What Are the Symptoms? Symptoms of Upper Respiratory Infection can come without warning. At first, it may start off as a sore throat, nasal congestion, sneezing, or mild cough. Typically, there are general symptoms as wellsuch as fever, body aches, and fatigue. Often no one symptom is prominent. Common symptoms include the following: Mild Cough, sometimes productive of phlegm Nasal congestion and sneezing Ear congestion and pain Throat pain Fever and chills Muscle aches and fatigue Possible Tests An upper respiratory infection is diagnosed based on an accurate history and physical examination. Additional tests are not required. Treatments The types and combinations of treatments are typically based on the symptoms that are bothering you. " Cough syrup to suppress coughing " Decongestants for ear, nose, and chest congestion " Antihistamines for runny nose " Throat lozenges for sore throat " Acetaminophen or non-steroidal antiinflamatory drugs (such as ibuprofen) for fever and body aches When to Call or Return for Evaluation It's common that patients require a couple of days to a couple of weeks to fully recover from a URI. Signs that should lead you to call or visit your doctor sooner include: " New or persistent fever " Increasing shortness of breath at rest or with minimal exertion " Increasing fatigue or weakness " Changes in your thinking or confusion " Cough persisting beyond 1-2 weeks To Prevent Future Infections Avoid tobacco smoke. If you smoke, quit. Stay away from smoky places. Ask friends and family not tosmoke around you, or in your home or car. Make sure that any allergies are treated. Ask your healthcare provider about getting a yearly flu shot and a pneumococcal vaccination. This vaccine protects against certain severe forms of pneumonia, but will not protect against all pneumonia. Wash hands often. This helps reduce the chance of picking up viruses that cause colds and flu. documented in this encounter Progress Notes * Rebekah Cerda PA-C - 08/29/2023 11:40 AM EDT Subjective: Yee Dockery is a 58 year old female. Chief Complaint Patient presents with Cold Symptoms HPI: 58 yo female PMH DM presents c/o fever, body aches, h/a, sinus pain/pressure, congestion, sorethroat, cough x 4 days. She is taking OTC without relief. No cp, sob, wheezing, abd pain, n/v/d. PMH: Patient Active Problem List Diagnosis Code STAEATOHEPATITIS K76.9 Endometriosis N80.9 Polycystic ovaries E28.2 Fibromyalgia M79.7 Restless leg syndrome G25.81 Obstructive sleep apnea G47.33 Periodic limb movement disorder G47.61 Female stress incontinence N39.3 Thrombosed external hemorrhoids K64.5 Advanced directives, counseling/discussion Z71.89 Type 2 diabetes mellitus with hemoglobin A1c goal of less than 8.0% ([facility]) E11.9 Calculus of kidney N20.0 Chronic interstitial cystitis N30.10 Condyloma acuminatum in female A63.0 Herpes labialis B00.1 History of appendectomy Z90.49 History of cholecystectomy Z90.49 Lichen sclerosus et atrophicus of the vulva N90.4 Mediastinal lymphadenopathy R59.0 Palpitations R00.2 Peripheral nerve disease G62.9 Prolonged QT interval R94.31 Sarcoidosis of lung with sarcoidosis of lymph nodes ([facility]) D86.2 Chronic insomnia F51.04 Anxiety and depression F41.9, F32.A Current Outpatient Medications Medication Sig Dispense Refill aspirin enteric coated 81 MG TBEC Take 1 Tablet by mouth in the morning. 100 Tab 3 omeprazole (PRILOSEC) 20 MG CPDR Take 1 Cap by mouth daily. 30 Cap 5 Glucose Blood (ONETOUCH ULTRA BLUE) STRP USE UP TO FOUR TIMES A DAY DIRECTED 100 Strip 3 Glucose Blood (ACCU-CHEK SHIV PLUS) STRP Use to test blood sugar 4 times daily. Dx: E11.9 400 Strip 3 Blood Glucose Monitoring Suppl (ACCU-CHEK SHIV PLUS) w/Device KIT Use to test blood sugar 4 times daily. Dx: 1 Kit 0 ONETOUCH DELICA LANCETS FINE [facility] USE UP TO FOUR TIMES A DAY DIRECTED 100 Each 11 valACYclovir (VALTREX) 1000 MG Tablet Take 1 Tab by mouth as needed (cold sore). 21 Tab 0 escitalopram (LEXAPRO) 10 MG Tablet Take 1 Tablet by mouth in the morning. 5 meclizine (ANTIVERT) 25 MG Tablet Take 1 Tablet by mouth as needed. ACCU-CHEK SHIV PLUS STRP USE TO TEST BLOOD SUGAR 4 TIMES DAILY. DX: E11.9 100 Strip 55 rOPINIRole (REQUIP) 0.25 MG Tablet Take 1 Tablet by mouth at bedtime. clobetasol propionate (TEMOVATE) 0.05 % ointment APPLY TOPICALLY TWICE DAILY (THIN FILM TO VULVA) FOR 14 DAYS ondansetron (ZOFRAN) 4 MG Tablet TAKE 2 TABLETS 3 TIMES A DAY NEEDED 18 Tab 6 glimepiride (AMARYL) 4 MG Tablet TAKE 1 TABLET BY MOUTH EVERY DAY 30 Tab 3 ALPRAZolam 0.5 MG Oral Tablet (xaNAX) Start: 12/14/20 16:10:00 EDT, See Instructions, Disp# 30 tab, Take 0.5 to 1 tab PO daily PRN anxiety, PRN: as needed for anxiety, Pharmacy: [facility]/pharmacy #[id number] Promethazine HCl 25 MG Oral Tablet (Phenergan) 1 Tablet. Phentermine HCl 37.5 MG Oral Capsule Take by mouth 1 Capsule in the morning. 30 Capsule 1 Dexcom G7 Hothouse Worker Device Start: 11/05/22 8:21:00 EDT, DEXCOM G7 LEAD GENERATION REPRESENTATIVE, See Instructions, Disp# 1 unknown unit, Refills: 0, USE DIRECTED, Pharmacy [id number] Dexcom G7 Sensor Start: 11/05/22 10:54:00 EDT, See Instructions, Disp# 4 each, Refills: 11, apply 1 sensor every 10 days, Pharmacy: [facility]/pharmacy #[id number] Continuation of patient use of medical marijuana is approved Start: 04/04/21 15:08:00 EDT, 1 inh, inhaled, qhs No current facility-administered medications for this visit. Past Medical History: Diagnosis Date Anxiety Depressive disorder, not elsewhere classified DM type 2, goal A1C below 8.0 Hematuria IVP neg, cystoscopy neg. Dr. Laureano INFORMATION restless leg syndrome Myalgia and myositis Other organic sleep apnea Other specified disorders of liver fatty liver Biopsy in [place] 1998 Past Surgical History: Procedure Laterality Date ANORECTAL EXAM ,DIAG, REQUIRING ANESTHESIA 04/20/2010 ANORECTAL EXAM UNDER ANESTHESIA [place] [facility] [place] WITH DOUBLE OSTEOTOMY october COLONOSCOPY W/ BIOPSY (RECTUM) 05/04/09 normal COLONOSCOPY, DIAGNOSTIC (RECTUM) 04/23/2013 COLONOSCOPY FLEXIBLE PROXIMAL DIAGNOSTIC performed by Betzy Nunez MD [place] [facility] [place], FLEXIBLE, DIAGNOSTIC 09/10/2017 reflux esophagitis/ESOPHAGOGASTRODUODENOSCOPY (EGD), FLEXIBLE, TRANSORAL, DIAGNOSTIC performed by Rivka Rivas MD at ENDOSCOPY [facility] HEMORRHOIDECTOMY,EXTERNAL, 2 + COLUMNS 07/04/[address] [facility] by Dr. Ramey HEMORRHOIDECTOMY,EXTERNAL, 2 + COLUMNS 04/20/2010 HEMORRHOIDECTOMY EXTERNAL COMPLETE performed by BETZY NUNEZ [place] [facility] [place], SURGICAL; W/LYSIS OF ADHESIONS 1991, 1994 and diagnositic endometriosis, cautery MAMMOGRAM - 1 BREAST 08/19/06 Left/Birad code 2/benign findings/Dr Laboy NEEDLE BIOPSY OF LIVER W/OTHER PROC august 1997 RECTAL TUMOR REMOVE,TRANSANAL,PARTIAL THICK 01/02/2013 EXCISION RECTAL TUMOR, TRANSANAL, PARTIAL THICK performed by Betzy Nunez [place] [facility] [place] REMOVAL OF APPENDIX 1973 3rd grade REMOVAL OF FOOT LESION 09/21/2009 No Evidence of Malignancy REMOVAL OF URETER STONE december1998 [place], dr laureano REMOVE GALLBLADDER august 1997 REPAIR BLADDER DEFECT 08/23/2010 VAGINAL SLING PROCEDURE FOR STRESS INCONTINENCE performed [place] LARISA SANCHEZ [place] [facility] [place] REPAIR/REVISION OF PERINEUM 08/23/2010 PERINEOPLASTY performed [place] LARISA SANCHEZ [place] [facility] [place]AT ECTOPIC , TUBE/OVARY 1989 salpingostomy Review of patient's allergies indicates: Allergen Reactions Metformin Hives Nitrofurantoin Itching and Rash hives Sulfa Antibiotics Hives Drug dermatitis Family History Problem Relation Age of Onset Heart disease Mother Other (HX DVTs) Sister No Known Problems Grandmother (Maternal) Stroke Grandmother (Paternal) Cancer Grandfather (Paternal) pancreatic Heart disease Grandfather (Paternal) Diabetes Grandfather (Maternal) Arthritis Father RA, dx at 35 Parkinsonism Father Renal Hx Father Cancer Aunt (Paternal) pancreatic Cancer Aunt (Paternal) pancreatic Family Status Relation Status Mo Alive Sis Alive hx of DVT, MGMA PGMA at age mid 70's cva PGFA (Not Specified) MGFA Fa (Not Specified) PAUNT (Not Specified) PAUNT (Not Specified) Social History Socioeconomic History Marital status: Spouse name: Not on file Number of children: Not on file Years of education: Not on file Highest education level: Not on file Occupational History Not on file Tobacco Use Smoking status: Former Current packs/day: 0.00 Types: Cigarettes Start date: 07/31/1999 Quit date: 07/31/2004 Years since quittin.0 Smokeless tobacco: Never Tobacco comments: occas Vaping Use Vaping Use: Never used Substance and Sexual Activity Alcohol use: Yes Comment: once or twice a year Drug use: No Sexual activity: Yes Partners: Male control/protection: I.U.D. 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 Objective: BP 126/72 | Pulse 86 | Temp 37.8 C (100 F) (Tympanic) | Resp 16 | Ht 1.626 m (5' 4") | Wt 67.1 kg (148 lb) | LMP (LMP Unknown) | SpO2 100% | BMI 25.40 kg/m | BSA 1.74 m Physical Exam Vitals and nursing note reviewed. Constitutional: General: She is not in acute distress. Appearance: Normal appearance. She is normal weight. HENT: Head: Normocephalic and atraumatic. Right Ear: Tympanic membrane, ear canal and external ear normal. Left Ear: Tympanic membrane, ear canal and external ear normal. Nose: Congestion present. Mouth/Throat: Mouth: Mucous membranes are moist. Pharynx: Posterior oropharyngeal erythema present. No oropharyngeal exudate. Eyes: Extraocular Movements: Extraocular movements intact. Conjunctiva/sclera: Conjunctivae normal. Pupils: Pupils are equal, round, and reactive to light. Cardiovascular: Rate and Rhythm: Normal rate. Heart sounds: Normal heart sounds. No murmur heard. No friction rub. No gallop. Pulmonary: Effort: Pulmonary effort is normal. Breath sounds: Normal breath sounds. Abdominal: General: Abdomen is flat. Bowel sounds are normal. Palpations: Abdomen is soft. There is no hepatomegaly, splenomegaly or mass. Tenderness: There is no abdominal tenderness. Musculoskeletal: Cervical back: Neck supple. Skin: General: Skin is warm and dry. Findings: No rash. Neurological: General: No focal deficit present. Mental Status: She is alert and oriented to person, place, and time. ASSESSMENT: Upper respiratory tract infection, unspecified type (Primary) - GROUP A STREP PCR; Future; Expected date: 08/29/2023 - INFLUENZA A/B RSV SARS-COV2, PCR, POINT OF CARE (ENTER/EDIT) Refer to pt handout for further instructions. Rebekah Cerda PA-C documented in this encounter Nursing Notes * Susan Hammonds MED ASSIST - 08/29/2023 11:33 AM EDT Yee Dockery is a 58 year old female who presents to walk-in clinic today complaining of Chief Complaint Patient presents with Cold Symptoms Pt c/o fever, sore throat, cough, bilateral ear pain x 4 days. Tried ibuprofen, nyquil, musinex OTC. Alone in exam room. documented in this encounter Miscellaneous Notes * Pt Handout (on AVS) - Rebekah Cerda PA-C - 08/29/2023 11:47 AM EDT Images from the original note were not included. [id number] Influenza (Adult) Updated for the 7177-5209 flu season Influenza is also called the flu. It's a viral illness that affects the air passages of your nose, sinuses, throat, and lungs. It's different from the common cold. The flu can easily be passed from one to person to another. It may be spread through the air by coughing and sneezing. It can also be spread by touching the sick person and then touching your own eyes, nose, or mouth. The flu starts 1 to 3 days after you are exposed to the flu virus. It may last for 1 to 2 weeks butsometimes people feel tired or fatigued for many weeks afterward. You usually don?t need to take antibiotics unless you are at high risk for or have a complication from a bacterial infection. This might be an ear or sinus infection or pneumonia. Flu symptoms may be mild or severe. They can include extreme tiredness (wanting to stay in bed all day), chills, fevers, muscle aches, soreness with eye movement, headache, and a dry, hacking cough. Antiviral medicine for the flu is available by prescription. If you start taking it within 48 hours, it may help reduce how long your symptoms last and how severe they are. Your provider may do a test to find out if you have influenza and which strain you have. Home care Follow these guidelines when caring for yourself at home: Stay away from cigarette smoke, whether it's yours or other people?s. Acetaminophen or ibuprofen will help ease your fever, muscle aches, and headache. Don?t give aspirin to anyone younger than 18 who has the flu. This can cause a serious condition called Zohreh syndrome. Nausea, loose stools, and loss of appetite are common with the flu. Eat light meals. Drink 6 to 8 glasses of liquids every day. Good choices are water, sport drinks, soft drinks without caffeine, juices, tea, and soup. Extra fluids will also help loosen secretions in your nose and lungs. [id number] cold medicines will not make the flu go away faster. But the medicines may helpwith coughing, sore throat, and congestion in your nose and sinuses. Don?t use a decongestant if you have high blood pressure. Stay home until your fever has been gone for at least 24 hours without using medicine to reduce fever. Follow-up care Follow up with your healthcare provider, or as advised, if you're not getting better over the next week. If you're age 65 or older, talk with your provider about getting a pneumococcal vaccine. You shouldalso get vaccinated against pneumococcal pneumoniae at other ages if you have a weak immune system,chronic asthma, COPD (chronic obstructive pulmonary disorder), or certain other conditions. With very few exceptions, all adults should get a flu vaccine every fall. February and March are generally good times to get vaccinated. Ask your provider about this. When to get medical advice Call your healthcare provider right away if you have the flu and any of these occur: Cough with lots of colored mucus (sputum) or blood in your mucus Chest pain, shortness of breath, wheezing, or trouble breathing Severe headache, or face, neck, or ear pain New rash with fever Fever of 100.4F (38C) or higher, or as advised by your provider Confusion, behavior change, or seizure Severe weakness or dizziness You get a new fever or cough after getting better for a few days Also call your provider if you have flu symptoms and have a weakened immune system or are taking medicines that can weaken your immune system. These include steroids and certain anti-inflammatory medicines. Last Reviewed Date: 11/15/202119997210-3359 [employer]. All rights reserved. This information is not intended as a substitute for professional medical care. Always follow your healthcare professional's instructions. documented in this encounter Plan of Treatment Pending Results Name Type Priority Associated Diagnoses Date /Time GROUP A STREP PCR Lab Routine Upper respiratory tract infection, unspecified type 08/29/2023 11:52 AM EDT Scheduled Orders Name Type Priority Associated Diagnoses Orde r Schedule GROUP A STREP PCR Lab Routine Upper respiratory tract infection, unspecified type Expected: 08/29/2023, Expires: 08/28/2024 INFLUENZA A/B RSV SARS-COV2, PCR, POINT OF CARE (ENTER/EDIT) Point of Care Testing Routine Upper respiratory tract infection, unspecified type Ordered: 08/29/2023 Scheduled Procedures Name Priority Associated Diagnoses Date/Ti me COLONOSCOPY FLEXIBLE PROXIMA L DIAGNOSTIC Recall Special screening for malignant neoplasms, colon Health Maintenance Due Date Last Done Comments HPV/Co-Test 1995 Pneumococcal Vaccine: Pediatrics (0 to 5 Years) and At-Risk Patients (6 to 64 Years) (2 of 2 - PCV) 01/11/2011 01/11/2010 Zoster Vaccines (1 of 2) 2015 Albumin/Creatinine Ratio 07/16/2015 015, 03/20/2013, 12/10/2011, Additional history exists HbA1c 11/18/2017 05/20/2017, 02/17, 10/29/2016, Additional history exists COLONOSCOPY-EVERY 5 YRS AGES 18-100 04/23/2018 04/23/2013, 04/23/2013, 05/04/2009 GFR 08/13/2018 08/13/2017, 09/2016, 03/16/2017, Additional history exists Mammogram 06/25/2019 06/25/2018, 11/16, 11/22/2008, Additional history exists Diabetic Foot Exam 08/04/2019 08/04/2018, 0 03/16/2017, 02/14/2016, Additional history exists Depression Screening 11/08/2019 11/07/2018 Diabetic Eye Exam 01/30/2020 01/29/2019, , 08/31/2013, Additional history exists Cervical Cancer Screening 05/20/2020 Pap Smear 05/20/2020 05/20/2017, 09/2016, 05/05/2013, Additional history exists Lipid Panel 06/13/2020 06/13/2015, 06/19, 03/20/2013, Additional history exists COVID-19 Vaccine ( - 2022- season) 2023 Influenza Vaccine (FLU shot) (#1) 2023 DTaP,Tdap,and Td Vaccines (2 - Td or Tdap) 01/08/2024 01/07/2014, 12/15/2006 GARDASIL-HPV IMMUNIZATION SERIES Aged Out No longer eligible based on patient's age to complete this topic MENINGOCOCCAL (MENACTRA/MENVEO) Aged Out No longer eligible based on patient's age to complete this topic documented as of this encounter Medical Devices Implanted Type Area Health Professor Device Identifier Shelf Expiration Date Model / Serial / Lot System Music Researcher Tvt Obturat [id number] - [id number] Implanted:Qty: 1 on [place]23/2010 [place] [facility] [place]: Bladder JNJ : [employer] 09/23/2010 [id number] / / [id number] documented as of this encounter Visit Diagnoses Diagnosis Upper respiratory tract infection, unspecified type- Primary documented in this encounter Advance Directives Latest Code Status on File Code Status Date Activated Date Inactivated Comments Full Code 08/23/2010 1:38 PM 08/25/2010 5:40 PM This o rder reflects the patients wishes and were consensually agreed upon. Code Status History Code Status Date Activated Date Inactivated Comments Full Code 08/23/2010 9:43 AM 08/23/2010 1:38 PM This or belen reflects the patients wishes and were consensually agreed upon. Full Code 04/18/2010 3:39 PM 04/21/2010 2:26 PM This order reflects the patients wishes and were consensually agreed upon. Question Answer Comments Discussion of Advance Directives occurred with: Patient Does the patient have a Living Will? No Does the patient have Health Care Power of Parts Driver? No Care Teams Tugboat Captain Relationship Specialty Start Date End Date Asha Dobbs PA-C [address] [place] [address], [place] [address] PCP - General Physician Soda Maker 08/29/23 documented as of this encounter
--- OUTSIDE RECORDS SUMMARY | 2023-11-06 21:05 | External Medical Summary | Continuity of Care Document ---
Author Name Unknown Organization [facility] Address [address] [place] [address] [id number] Care Team Providers Care Calender Inspector Name Role Phone KierrakarlieAsha bush Gisella Primary Care Physician [phone] [id number] Date[facility]): 10/03/23 - 10/03/[address] [phone] Discharge Disposition: Home or Self Care Attending Physician: MD Wilson Richard C Referring Physician: MD Wilson Richard C Allergies, Adverse Reactions, Alerts Substance Reaction Severity Status sulfADIAZINE Hives Active Macrobid Itching Rash Active metFORMIN GI issues Active Immunizations Given and Recorded Vaccine Date Status Refusal Reason hepatitis B adult vaccine 1 01/05/16 Recorded hepatitis B adult vaccine 2 01/07/14 Recorded hepatitis B adult vaccine 3 05/07/03 Recorded tetanus/diphtheria/pertuss, acel (Tdap) 4 01/07/14 Recorded pneumococcal 23-valent vaccine 5 01/11/10 Recorded measles/mumps/rubella virus vaccine 6 02/02/09 Rec orded tetanus toxoids-diphtheria, Td (Adult) 7 12/15/06 Recorded hepatitis A adult vaccine 8 05/07/03 Recorded 1Result Comment: 2021-10-26: Historical information-source unspecified 2Result Comment: 2021-10-26: Historical information-source unspecified 3Result Comment: 2021-10-26: Historical information-source unspecified 4Result Comment: 2021-10-26: Historical information-source unspecified 5Result Comment: 2021-10-26: Historical information-source unspecified 6Result Comment: 2021-10-26: Historical information-source unspecified 7Result Comment: 2021-10-26: Historical information-source unspecified 8Result Comment: 2021-10-26: Historical information-source unspecified Medications ALPRAZolam 0.5 mg oral tablet Start: 12/14/20 16:10:00 EDT, See Instructions, Disp# 30 tab, Take 0.5 to 1 tab PO daily PRN anxiety, PRN: as needed for anxiety, [id number] Start Date: 12/14/20 Status: Ordered buPROPion 200 mg/12 hours (SR) oral tablet, extended release Start: 05/06/23 15:49:00 EST, 1 tab, PO, Daily Start Date: 05/06/23 Status: Ordered busPIRone 15 mg oral tablet Start: 12/14/20 16:08:00 EDT, 1 tab, PO, bid, Disp# 180 tab, Refills: 3, Pharmacy: [facility] #[id number] Start Date: 12/14/20 Stop Date: 12/09/21 Status: Ordered clobetasol 0.05% topical ointment Start: 05/06/23 15:53:00 EST, See Instructions, Disp# 60 g, Refills: 0, USE 1 APPLICATION TOPICALLYTWICE A DAY X14 DAYS. APPLY A THIN FILM TO VULVA, [id number] Start Date: 05/06/23 Status: Ordered DEXCOM G7 VP CARDIOVASCULAR SERVICE LINE Start: 11/05/22 8:21:00 EDT, DEXCOM G7 VP CARDIOVASCULAR SERVICE LINE, See Instructions, Disp# 1 unknown unit, Refills: 0, USE DIRECTED, Pharmacy [id number] Start Date: 11/05/22 Status: Ordered Dexcom G7 Rail Switchman Start: 10/04/22 13:31:00 EDT, See Instructions, Disp# 1 kit, Use as directed, [id number] Start Date: 10/04/22 Status: Ordered Dexcom G7 Sensor Start: 11/05/22 10:54:00 EDT, See Instructions, Disp# 4 each, Refills: 11, apply 1 sensor every 10 days, Pharmacy: [facility] #[id number] Start Date: 11/05/22 Status: Ordered Dexcom G7 Sensor Start: 10/04/22 13:31:00 EDT, See Instructions, Disp# 3 kit, Use as directed, Note to Pharmacy: dispensing 9 sensors, Pharmacy: [facility] #[id number] Start Date: 10/04/22 Status: Ordered escitalopram 20 mg oral tablet See Instructions, Disp# 30 tab, Refills: 5, TAKE 1 TABLET BY MOUTH EVERY DAY, Pharmacy: [facility] [id number] Start Date: 12/29/20 Status: Ordered glimepiride 4 mg oral tablet Start: 08/28/23 15:01:00 EDT, 1 tab, PO, Daily, Disp# 90 tab, Refills: 3, Pharmacy: [facility] #[id number] Start Date: 08/28/23 Status: Ordered Medical Marijuana Start: 04/04/21 15:08:00 EDT, 1 inh, inhaled, qhs Start Date: 04/04/21 Status: Ordered Mounjaro 5 mg/0.5 mL subcutaneous solution Start: 03/25/23 9:30:00 EDT, 5 mg =, subQ, q7days, Disp# 2 unknown unit, Refills: 5, Pharmacy: [facility] [id number] Start Date: 03/25/23 Status: Ordered omeprazole 40 mg oral delayed release capsule Start: 08/22/23 9:54:00 EST, See Instructions, Disp# 60 cap, Refills: 5, TAKE 1 CAPSULE BY MOUTH TWICE A DAY, [id number] Start Date: 08/22/23 Status: Ordered ondansetron 4 mg oral tablet, disintegrating Start: 08/10/20 15:16:00 EST, 1 tab, PO, q8h, Disp# 90 tab, Note to Pharmacy: cancel oral tablet, PRN: as needed for nausea/vomiting, [id number] Start Date: 08/10/20 Stop Date: 09/09/20 Status: Ordered Phenergan 25 mg oral tablet Start: 10/22/22 16:05:00 EDT, 1 tab, PO, q6h, Disp# 40 tab, Refills: 1, PRN: as needed for nausea/vomiting, [id number] Start Date: 10/22/22 Stop Date: 11/11/22 Status: Ordered rOPINIRole 0.25 mg oral tablet Start: 06/13/23 7:57:00 EST, 3 tab, PO, qhs, Disp# 270 tab, Refills: 1, Pharmacy: [facility] [id number] Start Date: 06/13/23 Status: Ordered Problem List Condition Confirmation Course Effective Dates Status H ealth Status Informant Anxiety and depression Confirmed Active Chronic insomnia Confirmed Active Chronic interstitial cystitis Confirmed Active Dyspnea Confirmed Active Fibromyalgia Confirmed Active Herpes labialis Confirmed Active History of appendectomy Confirmed Active History of cholecystectomy Confirmed Active Lichen sclerosus et atrophicus of the vulva Confirmed Active Lymphadenopathy Confirmed Active Nausea and vomiting Confirmed Active Neuropathy, peripheral Confirmed Active Prolonged QT interval Confirmed Active RLS (restless legs syndrome) Confirmed Active 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 DM type 2, goal HbA1c < 7% Confirmed Active Weight loss Confirmed Active Procedures Procedure Date Related Diagnosis Body Site Status X-ray of right ankle 1 12/19/21 Co mpleted X-ray of right foot 2 12/19/21 Com pleted Cystoscopic laser lithotrips y of ureteric calculus 3 05/08/[address] of abdomen and pelvis 4 04/29/21 Completed X-ray tomography of right shoulder 5 02/09/21 Completed Shave biopsy of skin 09/22/20 Comp leted Esophagogastroduodenoscopy 6, 7 08/25/[address] of abdomen and pelvis wit h contrast 8 08/15/20 Completed Excision of lymph node 9, 10 03/31/20 Completed Diagnostic laryngoscopy 11 03/22/20 Completed X-ray of skull 12 02/12/20 Complet ed Bronchoscopy 08/02/[address] of chest 13 06/23/[address] of neck 14 06/23/19 Completed Appendectomy Completed Cholecystectomy Completed Salpingectomy for tubal ecto pic by abdominal approach Completed [address] [place] [address] Impression; 1. No acute osseous pathology [address] [place] [address] Impression: 1. No acute osseous pathology 2. Hallux valgus deformity and osteoarthritis [address] [place] [address] Laser destruction and basket extraction of stone. Insertion of stent catheter, left 4[facility] Impression: 1. 8 mm calculus in the left renal pelvis. No additional left renal calculi are identified. There is a 2 mm nonobstructing right renal calculus. No ureteral stone is seen. The unenhanced kidneys are normal in size and without hydronephrosis 5[facility] Impression: 1. No acute fracture or abnormality 2. Evidence of small lateral calcific tendinitis 6Pathology: A. Duodenum, second part, biopsy: Duodenal mucosa with no significant diagnositc abnormality. B. Stomach, antrum, biopsy: Gastric antral/body mucosa with mild chronic inactive gastritis and reactive foveolar hyperplasia, negative for dysplasia. Follow up as needed 7EGD 2 cm HH, antrum nl bx, 2nd duod nl bx 8[facility] Impresson: 1. No bowel obstruction or bowel wall thickening 2. Pathologically enlarged periesophageal gastropetic, periportal, pericaval and aortocaval lymph nodes have increased in size from comparison. Suspicious nonenlarged epicardial lymph nodes are also present. Primary differential consideration is a lymphoproliferative disorder. Oncologic workup is needed 3. Cholecystectomy 4. Nonobstructing bilateral nephrolithiasis 9[facility] direct laryngoscopy, esophagoscopy right mid neck lymph node excision 10Pathology: Benign lymph nodes inside the lipoma with no sign of granuloma 11[facility] Direct laryngoscopy and esophagoscopy followed by excision of right cervical node. Sent as fresh speciem for flow cytometry 12[facility] Impression: 1. No conventional radiographic evidence of a skull lesion 131. Abnormal enlarged bulky mediastinal and hilar adenopathy of uncertain etiology. 2. Hepatic steatosis. Cholecystectomy. 141. Left submandibular sialolith. Enlargement of the left submandibular gland with infiltration of the surrounding soft tissues and subcutaneous fat. Asymmetric left cervical adenopathy. 2. Superior mediastinal adenopathy. Recommend CT of the chest for further evaluation. 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 COMPARISON: MRI of the brain from 04/03/2020. TECHNIQUE: Multisequence, multiplanar imaging of the brain was performed with and without intravenous contrast. FINDINGS: Cerebral parenchyma: There is no restricted diffusion to suggest acute or early subacute infarct. There is no hemorrhage. Brain volume is normal for age. Gunn- white matter differentiation is preserved. Extra-axial spaces: No extra-axial fluid collection. Stable 2.1 x 1 cm arachnoid cyst in the right middle cranial fossa. Ventricles: Normal as to size, shape and position. Mass effect: None Posterior Fossa: Brainstem and cerebellum are unremarkable. Cerebellar tonsils are normal in position and configuration Vascular system: major intracranial flow voids are present. Calvarium: Normal Sella: Unremarkable Visualized paranasal sinuses/mastoids: clear Orbits: Unremarkable. TMJs: Unremarkable left. Erosive changes along the right femoral head with surrounding edema and enhancement, progressed from prior. Right TMJ joint effusion also noted. IMPRESSION: Stable 2 cm arachnoid cyst in the right middle cranial fossa. Otherwise, unremarkable MRI brain examination. No evidence for acute intracranial abnormality. Erosive changes along the right mandibular condyle head with surrounding edema and enhancement, progressed from prior. Right TMJ effusion also noted. Findings suggestive of compatible with active inflammatory or degenerative arthritis. Workstation ID: [id number] Final Dictated by:MD Blanco Danilo Dictated DT/TM:10/03/2023 11:07 Signed by:MD Blanco Danilo Signed (Electronic Signature):10/03/2023 11:06 Social History Social History Type Response Smoking Status Never smoked cigaret diane Sex Female Patient Care team information Care Team Personnel Name: MD Katie, Rafi Waters Position: Physician - Pulmonary Med Member Role: Lifetime Relationship Address: Address: [address] [place] [address] [address] [facility] [place] [address] Name: LORENZO Dobbs, Asha Obando Position: Physician Asst Exmpt - Family Med Member Role: Primary Care Provider Address: Address: [address] [place] [address] [address] [place] [address] [place] Care Team Related Persons Name: TOM GRANDE
--- OUTSIDE RECORDS SUMMARY | 2023-11-06 21:05 | External Medical Summary | Summary of Care ---
Author Name Unknown Organization [facility] Address [address] [facility] [place] [address] Phone [phone] Care Team Providers Care Rn Visiting Name Role Phone Asha Dobbs PA-C Primary Care Provide r Reason for Visit * Reason Comments Cold Symptoms Encounter Details Date Type Department Care Team (Latest Contact Info) Description 08/29/2023 11:50 AM EDT Convenient Care Visit [facility]ram Convenient Kath Layne [address] [place] [id number] Rebekah Cerda PA-C [address] [employer] [facility] [address] [place] [address] Upper respiratory tract infection, unspecified type* Allergies [...] anxiety, PRN: as needed for anxiety, Pharmacy: [facility]/pharmacy #[id number] 0 12/14/2020 Active Promethazine HCl 25 MG Oral Tablet (Phenergan) 1 Tablet. 0 12/14/2020 Active Phentermine HCl 37.5 MG Oral Capsule Take by mouth 1 Capsule in the morning. 30 Capsule 1 08/10/2021 Active Dexcom G7 Wired Music Operator Device Start: 11/05/22 8:21:00 EDT, DEXCOM G7 NUCLEAR POWER PLANT ENGINEER, See Instructions, Disp# 1 unknown unit, Refills: 0, USE DIRECTED, Pharmacy [id number] 0 10/04/2022 Active Dexcom G7 Sensor Start: 11/05/22 10:54:00 EDT, See Instructions, Disp# 4 each, Refills: 11, apply 1 sensor every 10 days, Pharmacy: [facility]/pharmacy #[id number] 0 11/05/2022 Active Continuation of patient [...] A1c goal of less than 8.0% ([facility]) E11.9 Calculus of kidney N20.0 Chronic interstitial cystitis N30.10 Condyloma acuminatum in female A63.0 Herpes labialis B00.1 History of appendectomy Z90.49 History of cholecystectomy Z90.49 Lichen sclerosus et atrophicus of the vulva N90.4 Mediastinal lymphadenopathy R59.0 Palpitations R00.2 Peripheral nerve disease G62.9 Prolonged QT interval R94.31 Sarcoidosis of lung with sarcoidosis of lymph nodes ([facility]) D86.2 Chronic insomnia F51.04 Anxiety and depression [...] 1 Kit 0 ONETOUCH DELICA LANCETS [facility] USE UP TO FOUR TIMES A DAY [...] anxiety, PRN: as needed for anxiety, Pharmacy: [facility]/pharmacy #[id number] Promethazine HCl 25 MG Oral Tablet (Phenergan) 1 Tablet. Phentermine HCl 37.5 MG Oral Capsule Take by mouth 1 Capsule in the morning. 30 Capsule 1 Dexcom G7 Wired Music Operator Device Start: 11/05/22 8:21:00 EDT, DEXCOM G7 NUCLEAR POWER PLANT ENGINEER, See Instructions, Disp# 1 unknown unit, Refills: 0, USE DIRECTED, Pharmacy [id number] Dexcom G7 Sensor Start: 11/05/22 10:54:00 EDT, See Instructions, Disp# 4 each, Refills: 11, apply 1 sensor every 10 days, Pharmacy: [facility]/pharmacy #[id number] Continuation of patient use of medical marijuana [...] disorders of liver fatty liver Biopsy in [place] 1998 Past Surgical History: Procedure Laterality Date ANORECTAL EXAM ,DIAG, REQUIRING ANESTHESIA 04/20/2010 ANORECTAL EXAM UNDER ANESTHESIA performed by BETZY NUNEZ at OR [facility] BUNION CORRECTED WITH DOUBLE OSTEOTOMY october COLONOSCOPY W/ BIOPSY (RECTUM) 05/04/09 normal COLONOSCOPY, DIAGNOSTIC (RECTUM) 04/23/2013 COLONOSCOPY FLEXIBLE PROXIMAL DIAGNOSTIC performed by Betzy Nunez MD at ENDOSCOPY [facility] EGD, FLEXIBLE, DIAGNOSTIC 09/10/2017 reflux esophagitis/ESOPHAGOGASTRODUODENOSCOPY (EGD), FLEXIBLE, TRANSORAL, DIAGNOSTIC performed by Rivka Rivas MD at ENDOSCOPY [facility] HEMORRHOIDECTOMY,EXTERNAL, 2 + COLUMNS 07/04/04 done at [facility] by Dr. Ramey HEMORRHOIDECTOMY,EXTERNAL, 2 + COLUMNS 04/20/2010 HEMORRHOIDECTOMY EXTERNAL COMPLETE performed by BETZY NUNEZ at OR [facility] LAPAROSCOPY, SURGICAL; W/LYSIS OF ADHESIONS 1991, 1994 and diagnositic endometriosis, cautery MAMMOGRAM - 1 BREAST 08/19/06 Left/Birad code 2/benign findings/Dr Laboy NEEDLE BIOPSY OF LIVER W/OTHER PROC august 1997 RECTAL TUMOR REMOVE,TRANSANAL,PARTIAL THICK 01/02/2013 EXCISION RECTAL TUMOR, TRANSANAL, PARTIAL THICK performed by Betzy Nunez MD at OR [facility] REMOVAL OF APPENDIX 1973 3rd grade REMOVAL OF FOOT LESION 09/21/2009 No Evidence of Malignancy REMOVAL OF URETER STONE december1998 [place], dr laureano REMOVE GALLBLADDER august 1997 REPAIR BLADDER DEFECT 08/23/2010 VAGINAL SLING PROCEDURE FOR STRESS INCONTINENCE performed by LARISA SANCHEZ at OR [facility] REPAIR/REVISION OF PERINEUM 08/23/2010 PERINEOPLASTY performed by LARISA SANCHEZ at OR [facility] TREAT ECTOPIC , TUBE/OVARY 1989 salpingostomy Review [...] Self-Exams Not Asked Social History 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 [id number] Influenza (Adult) Updated for the 3137-1928 flu season Influenza is also called the [...] loosen secretions in your nose and lungs. Bual-rna-vtdngqu cold medicines will not make the flu [...] and certain anti-inflammatory medicines. Last Reviewed Date: 11/15/202119995080-8762 [employer]. All rights reserved. This information is not [...] infection, unspecified type Expected: 08/29/2023, Expires: 08/28/2024 Scheduled Procedures Name Priority Associated Diagnoses Date/Ti [...] this encounter Medical Devices Implanted Type Area Wool Merchant Device Identifier Shelf Expiration Date Model / Serial / Lot System Hemodialysis Charge Nurse Tvt Obturat [id number] - [id number] Implanted:Qty: 1 on 08/23/2010 at OR [facility] N/A: Bladder JNJ : [employer] 09/23/2010 [id number] / / [id number] documented as of this encounter Procedures Procedure Name Priority Date/Time Associated Diagnosis Comments INFLUENZA A/B RSV SARS-COV2, PCR, POINT OF CARE (ENTER/EDIT) Routine 08/29/2023 12:46 PM EDT Upper respiratory tract infection, unspecified type documented in this encounter Results * INFLUENZA A/B RSV SARS-COV2, PCR, POINT OF CARE (ENTER/EDIT) (08/29/2023 12:46 PM EDT) SARS-CoV-2 (COVID-19) Result Negative Negative CAREJAMAICA LEVINEWZafar Influenza A PCR Result Negative Negative CAREJAMAICA RUSSOLUANNEZafar Influenza B PCR Result Negative Negative CAREJAMAICA RUSSOMUSEZafar RSV PCR Result Negative Negative ANDRAE VENEGAS Upper Respiratory 08/29/2023 12:46 PM EDT Rebekah Cerda PA-C LAB POINT OF CAR E TEST ENTER/EDIT ORDERABLES SHAHRAM VENEGAS [address] [place] [address] documented in this encounter Visit Diagnoses Diagnosis Upper respiratory [...] the patient have Health Care Power of Electroplater Automatic? No Care Teams Rn Visiting Relationship Specialty Start Date End Date Asha Dobbs PA-C [address] [place] [address], [place] [address] PCP - General Physician Nuclear Operations Specialist 08/29/23 documented as of this encounter
--- OUTSIDE RECORDS SUMMARY | 2023-11-06 21:05 | External Medical Summary | Continuity of Care Document ---
Author Name Unknown Organization [address] Address [address] [place] [address] [id number] Care Team Providers Care Solar Manufacturer'S Representative Name Role Phone Asha Dobbs Primary Care Physician [phone] [id number] Date(s): 08/30/23 - 08/30/23 [facility] [address], [address] [place] [address] [phone] Encounter Diagnosis Sinusitis(Discharge Diagnosis) - 09/01/23 Discharge Disposition: Home or Self Care Attending Physician: LORENZO Dobbs, Asha Obando Allergies, Adverse Reactions, Alerts Substance Reaction Severity Status sulfADIAZINE Hives Active Macrobid Itching Rash Active metFORMIN GI issues Active Assessment and Plan Extracted from: Title:TeleHealth Visit Note Author:DEBRA Vazquez Danielle B Date:08/30/23 1.Sinusitis -Symptomatologysuspicious for sinusitis. Will treat for bacterialsinusitis givenleft upper teeth pain. Allergies and home medications reviewed. Augmentin sent to pharmacy. Discussed medication desired effects, potential side effects, and how to administer the medication. -Encouraged continued use of oral antihistamines and nasal steroids. -Follow up for worsening or persistent symptoms. - Patient verbalizes understanding regarding plan of care and all questions answered. . Immunizations Given and Recorded Vaccine Date Status [...] anxiety, PRN: as needed for anxiety, Pharmacy: [facility]/pharmacy #[id number] Start Date: 12/14/20 Status: Ordered Augmentin 875 mg-125 mg oral tablet Start: 08/30/23 10:10:00 EDT, amoxicillin 1 tab, PO, bid, Disp# 10, X 5 day, Stop: 09/04/23 10:10:00 EDT, Pharmacy: [facility]/pharmacy #[id number] Start Date: 08/30/23 Stop Date: 09/04/23 Status: Ordered buPROPion 200 mg/12 hours (SR) oral tablet, extended release Start: 05/06/23 15:49:00 EST, 1 tab, PO, Daily Start Date: 05/06/23 Status: Ordered busPIRone 15 mg oral tablet Start: 12/14/20 16:08:00 EDT, 1 tab, PO, bid, Disp# 180 tab, Refills: 3, Pharmacy: [facility]/pharmacy #[id number] Start Date: 12/14/20 Stop Date: 12/09/21 Status: Ordered clobetasol 0.05% topical ointment Start: 05/06/23 15:53:00 EST, See Instructions, Disp# 60 g, Refills: 0, USE 1 APPLICATION TOPICALLYTWICE A DAY X14 DAYS. APPLY A THIN FILM TO VULVA, Pharmacy: [facility]/pharmacy #[id number] Start Date: 05/06/23 Status: Ordered DEXCOM G7 TOLL LINEMAN Start: 11/05/22 8:21:00 EDT, DEXCOM G7 TOLL LINEMAN, See Instructions, Disp# 1 unknown unit, Refills: 0, USE DIRECTED, Pharmacy [facility] STORE [id number] Start Date: 11/05/22 Status: Ordered Dexcom G7 Line Out Worker Start: 10/04/22 13:31:00 EDT, See Instructions, Disp# 1 kit, Use as directed, [id number] Start Date: 10/04/22 Status: Ordered Dexcom G7 Sensor Start: 11/05/22 10:54:00 EDT, See Instructions, Disp# 4 each, Refills: 11, apply 1 sensor every 10 days, [id number] Start Date: 11/05/22 Status: Ordered Dexcom G7 Sensor Start: 10/04/22 13:31:00 EDT, See Instructions, Disp# 3 kit, Use as directed, Note to Pharmacy: dispensing 9 sensors, [id number] Start Date: 10/04/22 Status: Ordered escitalopram 20 mg oral tablet See Instructions, Disp# 30 tab, Refills: 5, TAKE 1 TABLET BY MOUTH EVERY DAY, Pharmacy: [id number] Start Date: 12/29/20 Status: Ordered glimepiride 4 mg oral tablet Start: 08/28/23 15:01:00 EDT, 1 tab, PO, Daily, Disp# 90 tab, Refills: 3, Pharmacy: [facility]/pharmacy #[id number] Start Date: 08/28/23 Status: Ordered Medical Marijuana Start: 04/04/21 15:08:00 EDT, 1 inh, inhaled, qhs Start Date: 04/04/21 Status: Ordered Mounjaro 5 mg/0.5 mL subcutaneous solution Start: 03/25/23 9:30:00 EDT, 5 mg =, subQ, q7days, Disp# 2 unknown unit, Refills: 5, Pharmacy: [id number] Start Date: 03/25/23 Status: Ordered omeprazole 40 mg oral delayed release capsule Start: 08/22/23 9:54:00 EST, See Instructions, Disp# 60 cap, Refills: 5, TAKE 1 CAPSULE BY MOUTH TWICE A DAY, [facility]: [id number] Start Date: 08/22/23 Status: Ordered ondansetron 4 mg oral tablet, disintegrating Start: 08/10/20 15:16:00 EST, 1 tab, PO, q8h, Disp# 90 tab, Note to Pharmacy: cancel oral tablet, PRN: as needed for nausea/vomiting, [id number] Start Date: 08/10/20 Stop Date: 09/09/20 Status: Ordered Phenergan 25 mg oral tablet Start: 10/22/22 16:05:00 EDT, 1 tab, PO, q6h, Disp# 40 tab, Refills: 1, PRN: as needed for nausea/vomiting, [id number] Start Date: 10/22/22 Stop Date: 11/11/22 Status: Ordered rOPINIRole 0.25 mg oral tablet Start: 06/13/23 7:57:00 EST, 3 tab, PO, qhs, Disp# 270 tab, Refills: 1, Pharmacy: [id number] Start Date: 06/13/23 Status: Ordered Mental Status 08/30/23 Barriers to Learning one year None evide nt Mandatory Health Literacy Documentation Yes Health Literacy Communication Barriers N ever Primary Language Zimbabwean Problem List Condition Confirmation Course Effective Dates [...] 7% Confirmed Active Weight loss Confirmed Active Diagnosis Diagnosis Type Effective Dates Health Status Clini kody Service Informant Sinusitis Discharge Diagnosis 09/01/23 Procedures Procedure Date Related Diagnosis Body Site [...] tubal ecto pic by abdominal approach Completed [address] [place] [address] Impression; 1. [facility]: 1. No acute osseous pathology 2. Hallux valgus deformity and osteoarthritis [facility] Laser destruction and basket extraction of stone. [facility] of stent catheter, [facility] Impression: 1. 8 mm calculus in the [...] antrum nl bx, 2nd duod nl bx [facility] Impresson: 1. No bowel obstruction or bowel wall thickening 2. Pathologically enlarged periesophageal gastropetic, periportal, pericaval and aortocaval lymph nodes have increased in size from comparison. Suspicious nonenlarged epicardial lymph nodes are also present. Primary differential consideration is a lymphoproliferative disorder. Oncologic workup is needed 3. Cholecystectomy 4. Nonobstructing bilateral nephrolithiasis [facility] direct laryngoscopy, esophagoscopy right mid neck lymph node excision 10Pathology: Benign lymph nodes inside the lipoma with no sign of granuloma [facility] Direct laryngoscopy and esophagoscopy followed by excision of right cervical node. Sent as fresh speciem for flow cytometry [facility] Impression: 1. No conventional radiographic evidence of a skull lesion 131. Abnormal enlarged bulky mediastinal and hilar adenopathy of uncertain etiology. 2. Hepatic steatosis. Cholecystectomy. 141. Left submandibular sialolith. Enlargement of the left submandibular gland with infiltration of the surrounding soft tissues and subcutaneous fat. Asymmetric left cervical adenopathy. 2. Superior mediastinal adenopathy. Recommend CT of the chest for further evaluation. Social History Social History Type Response Smoking Status Never smoked cigaret diane Sex Female [facility] Outpt Note * DEBRA Vazquez Danielle B: PERFORM Event Display: [facility] Outpt Note Authored Date: [id number] TeleHealth Visit Note I have confirmed the patients name and date of . The patient has consented to this service,and I have advised the patient that this is a billable visit for which they may be subject to a copay. [x ] The patient has initiated this visit after he/she was informed of the availability of telehealth for this medically necessary visit. [ _ ] The provider initiated this visit after explaining the need for this visit to the patient, who has consented to this virtual visit. I am located at my: [x ] Office [ _ ] Home [ _ ] Other: _ The patient is located at: [ x] Home [ _ ] Other: _ This visit was conducted via live audio/video technology: [x ] [employer] [ _ ] Zoom This visit was conducted via [ _ ] Telephone, and was not related to a visit or procedure that occurred within the past 7 days. Total time spent communicating with the patient:10 minutes Chief Complaint started saturday night. was at urgent care yesterday. flu and covid negative. has facial pressure, congestion, headache, cough, mostly at night. History of Present Illness Yee is a 58-year-old female patient Amy Dobbs PA-C who is here forsinus congestionx 5 days. Also has facial pressure,frontal sinus headache,productive cough, left upper teeth pain. Afebrile. She states she went to urgent carewhen symptoms first started and they recommended oral antihistamine and nasal steroid. COVID and flu testing was negative.Patient has beenfollowing recommendationswithout change in symptoms,and she is concerned because ben is flying to [place] to visit her sonearly next week. Review of Systems Rightnegative unless stated in HPI. Physical Exam CONSTITUTIONAL: Well-developed, well nourished. No acute distress. NEUROLOGICAL: Patient alert, orientated, memory intact. HEENT: Head is normocephalic. Eyes- symmetrical, no erythema or discharge. LUNGS: Respirations even and unlabored, chest expansion symmetrical.. INTEGUMENTARY: No rash, wounds, lesions noted on visible skin. PSYCHOSOCIAL: Calm and cooperative, interacts appropriately with staff. Assessment/Plan 1.Sinusitis -Symptomatologysuspicious for sinusitis. Will treat for bacterialsinusitis givenleft upper teeth pain. Allergies and home medications reviewed. Augmentin sent to pharmacy. Discussed medication desired effects, potential side effects, and how to administer the medication. -Encouraged continued use of oral antihistamines and nasal steroids. -Follow up for worsening or persistent symptoms. - Patient verbalizes understanding regarding plan of care and all questions answered.. Problem List/Past Medical History Ongoing Anxiety and depression Chronic insomnia Chronic interstitial cystitis DM type 2, goal HbA1c < 7% Dyspnea Fibromyalgia Herpes labialis History of appendectomy History of cholecystectomy Lichen sclerosus et atrophicus of the vulva Lymphadenopathy Nausea and vomiting Neuropathy, peripheral Prolonged QT interval RLS (restless legs syndrome) Sarcoidosis of lung with sarcoidosis of lymph nodes Weight loss Historical Acute hypokalemia Acute severe vertigo Dehydration Ectopic Epigastric pain Eruption Flank pain Headache Hyperglycemia Kidney stone Near syncope Palpitations Pyelonephritis Syncope Urinary tract infectious disease Procedure/Surgical History X-ray of right foot| Service Date: 12/19/2021X-ray of right ankle| Service Date: 12/19/2021ystoscopic laser lithotripsy of ureteric calculus| Service Date: 05/08/2021T of abdomen and pelvis| Service Date: 04/29/2021X-ray tomography of right shoulder| Service Date: 02/09/2021have biopsy of skin| Service Date: 09/22/2020sophagogastroduodenoscopy| Service Date: 08/25/2020T of abdomen and pelvis with contrast| Service Date: 08/15/2020xcision of lymph node| Service Date: 03/31/2020Diagnostic laryngoscopy| Service Date: 03/22/2020X-ray of skull| Service Date: 0 02/12/2020Bronchoscopy| Service Date: 08/02/2019CT of neck| Service Date: 06/23/2019CT of chest| Service Date: 06/23/2019Salpingectomy for tubal ectopic by abdominal approachAppendectomyCholecystectomy Medications ALPRAZolam(ALPRAZolam 0.5 mg oral tablet), See Instructions, PRN amoxicillin-clavulanate(Augmentin 875 mg-125 mg oral tablet), 1 tab, PO, bid buPROPion(buPROPion 200 mg/12 hours (SR) oral tablet, extended release), 200 mg= 1 tab, PO, Daily busPIRone(busPIRone 15 mg oral tablet), 15 mg= 1 tab, PO, bid, 3 refills cannabis(Medical Marijuana), 1 inh, inhaled, qhs clobetasol topical(clobetasol 0.05% topical ointment), See Instructions diabetes supplies(Dexcom G7 Sensor), See Instructions, 11 refills diabetes supplies(Dexcom G7 Line Out Worker), See Instructions diabetes supplies(Dexcom G7 Sensor), See Instructions escitalopram(escitalopram 20 mg oral tablet), See Instructions glimepiride(glimepiride 4 mg oral tablet), 4 mg= 1 tab, PO, Daily, 3 refills omeprazole(omeprazole 40 mg oral delayed release capsule), See Instructions, 5 refills ondansetron(ondansetron 4 mg oral tablet, disintegrating), 4 mg= 1 tab, PO, q8h, PRN promethazine(Phenergan 25 mg oral tablet), 25 mg= 1 tab, PO, q6h, PRN, 1 refills rOPINIRole(rOPINIRole 0.25 mg oral tablet), 3 tab, PO, qhs tirzepatide(Mounjaro 5 mg/0.5 mL subcutaneous solution), 5 mg, subQ, q7days unlisted medication(DEXCOM G7 TOLL LINEMAN), See Instructions Allergies MacrobidItching, Rash metFORMINGI issues sulfADIAZINEHives Social History Smoking Status Never smoked cigarettes Alcohol - No Risk Exercise - Does not exercise Substance Abuse - Denies Substance Abuse Tobacco - Denies Tobacco Use Family History Cancer: PGF. Hypertension: Mother. Respiratory disease: Father. Stroke: PGM. Health Status Family Member(s) Immunizations Vaccine Date Status hepatitis B adult vaccine 01/05/2016 Recorded Comments : 2021-10-26: Historical information-source unspecified tetanus/diphtheria/pertuss, acel (Tdap) 01/07/2014 Recorded Comments : 2021-10-26: Historical information-source unspecified hepatitis B adult vaccine 01/07/2014 Recorded Comments : 2021-10-26: Historical information-source unspecified pneumococcal 23-valent vaccine 01/11/2010 Recorded Comments : 2021-10-26: Historical information-source unspecified measles/mumps/rubella virus vaccine 02/02/2009 Recorded Comments : 2021-10-26: Historical information-source unspecified tetanus toxoids-diphtheria, Td (Adult) 12/15/2006 Recorded Comments : 2021-10-26: Historical information-source unspecified hepatitis B adult vaccine 05/07/2003 Recorded Comments : 2021-10-26: Historical information-source unspecified hepatitis A adult vaccine 05/07/2003 Recorded Comments : 2021-10-26: Historical information-source unspecified Recommendations Health Maintenance Pending(in the next year) OverDue Adult Influenza Vaccine due12/14/22and every 1year Due Adult COVID-19 Vaccination due09/01/23Unknown Frequency Adult Social Determinants of Health Screening due09/01/23Unknown Frequency Breast Cancer Screening due09/01/23Unknown Frequency Cervical Cancer Screening due09/01/23Unknown Frequency Colorectal Cancer Screening due09/01/23Unknown Frequency Diabetes Nephropathy Management due09/01/23Unknown Frequency Hepatitis C Screening due09/01/23One-time only Pneumococcal Vaccine Adults and Adolescents with Chronic Illness due09/01/23One-time only Shingles Vaccine due09/01/23One-time only Due In Future Diabetic Eye Exam not due until04/30/24and every 731day Diabetes Management A1c not due until05/06/24and every 366day Body Mass Index not due until06/05/24and every 366day Satisfied(in the past 1 year) Satisfied Body Mass Index on06/05/23.Satisfied by ARLYN Christianson Kelly Electronic Signature on File CC: Asha Dobbs PA-C,MPAS [address] [facility] [id number] Electronically Reviewed/Signed by: DEBRA Samuels Author Signature Dt/Tm:09/01/2023 03:59 PM Family Medicine Electronically Reviewed/Signed by: Carlos Hernández MD Department of Family Medicine DBN Patient Care team information Care Team Personnel Name: MD Katie, Rafi Waters Position: Physician - Pulmonary Med Member Role: Lifetime Relationship Address: Address: [address] [place] [address] [address] [address] [place] Name: LORENZO Dobbs, Asha Obando Position: Physician Asst Exmpt - Family Med Member Role: Primary Care Provider Address: Address: [address] [place] [address] [address] [place] [address] [place] Care Team Related Persons Name: TOM GRANDE"
--- OUTSIDE RECORDS SUMMARY | 2023-11-06 21:05 | External Medical Summary ---
Author Name Unknown Address Unknown Organization K01:[facility] [place] - [address] [place], [place] [address]e. [facility] [address] Laboratory Report Ordering Provider Test Date Status ALEXANDRIA BERGER 08/29/2023 11:52:16 Final Observation Date Value Abnormality Reference (Units) Status Streptococcus pyogenes DNA [Presence] in Throat by EULALIA with probe detection 08/29/2023 11:52:16 Negative. No Group A Streptococcus detected by PCR (amplified probe). Negative Final This test was developed and its performance characteristics determined by [facility]. It has not been cleared or approved by the FDA. The laboratory is regulated under CLIA as qualified to perform high- complexity testing. This test is used for clinical purposes. It should not be regarded as investigational or for research. Performing Location [facility] [place] - [facility]. [facility] [address]
--- OUTSIDE RECORDS SUMMARY | 2023-11-06 21:05 | External Medical Summary | Summary of Care ---
Author Name Unknown Organization [facility] Address [address] [facility] [place] [address] Phone [phone] Care Team Providers Care Rehab Trainer Name Role Phone Asha Dobbs PA-C Primary Care Provide r Reason for Visit * Reason Comments Cold Symptoms Encounter Details Date Type Department Care Team (Latest Contact Info) Description 08/29/2023 11:50 AM EDT [facility] Visit Ashlyn Convenient Kath [place] [place] [id number] Rebekah Cerda PA-C [address] [place] [address] Upper respiratory tract infection, unspecified type* Allergies [...] anxiety, PRN: as needed for anxiety, Pharmacy: [facility]/pharmacy #[id number] 0 12/14/2020 Active Promethazine HCl 25 MG Oral Tablet (Phenergan) 1 Tablet. 0 12/14/2020 Active Phentermine HCl 37.5 MG Oral Capsule Take by mouth 1 Capsule in the morning. 30 Capsule 1 08/10/2021 Active Dexcom G7 Cattle Dehorner Device Start: 11/05/22 8:21:00 EDT, DEXCOM G7 RESEARCH GENETICIST, See Instructions, Disp# 1 unknown unit, Refills: 0, USE DIRECTED, [id number] 0 10/04/2022 Active Dexcom G7 Sensor Start: 11/05/22 10:54:00 EDT, See Instructions, Disp# 4 each, Refills: 11, apply 1 sensor every 10 days, Pharmacy: [facility]/pharmacy #[id number] 0 11/05/2022 Active Continuation of patient [...] hemoglobin A1c goal of less than 8.0% ([facility]) E11.9 Calculus of kidney N20.0 Chronic interstitial cystitis N30.10 Condyloma acuminatum in female A63.0 Herpes labialis B00.1 History of appendectomy Z90.49 History of cholecystectomy Z90.49 Lichen sclerosus et atrophicus of the vulva N90.4 Mediastinal lymphadenopathy R59.0 Palpitations R00.2 Peripheral nerve disease G62.9 Prolonged QT interval R94.31 Sarcoidosis of lung with sarcoidosis of lymph nodes ([facility]) D86.2 Chronic insomnia F51.04 Anxiety and depression [...] 1 Kit 0 ONETOUCH DELICA LANCETS [facility] USE UP TO FOUR TIMES A DAY [...] anxiety, PRN: as needed for anxiety, Pharmacy: [facility]/pharmacy #[id number] Promethazine HCl 25 MG Oral Tablet (Phenergan) 1 Tablet. Phentermine HCl 37.5 MG Oral Capsule Take by mouth 1 Capsule in the morning. 30 Capsule 1 Dexcom G7 Cattle Dehorner Device Start: 11/05/22 8:21:00 EDT, DEXCOM G7 RESEARCH GENETICIST, See Instructions, Disp# 1 unknown unit, Refills: 0, USE DIRECTED, Pharmacy [facility] STORE [id number] Dexcom G7 Sensor Start: 11/05/22 10:54:00 EDT, See Instructions, Disp# 4 each, Refills: 11, apply 1 sensor every 10 days, Pharmacy: [facility]/pharmacy #[id number] Continuation of patient use of medical marijuana [...] disorders of liver fatty liver Biopsy in [place] 1998 Past Surgical History: Procedure Laterality Date ANORECTAL EXAM ,DIAG, REQUIRING ANESTHESIA 04/20/2010 ANORECTAL EXAM UNDER ANESTHESIA [place] [facility] CORRECTED WITH DOUBLE OSTEOTOMY october COLONOSCOPY W/ BIOPSY (RECTUM) 05/04/09 normal COLONOSCOPY, DIAGNOSTIC (RECTUM) 04/23/2013 COLONOSCOPY FLEXIBLE PROXIMAL DIAGNOSTIC performed by Betzy Nunez MD at [place] [facility] EGD, FLEXIBLE, DIAGNOSTIC 09/10/2017 reflux esophagitis/ESOPHAGOGASTRODUODENOSCOPY (EGD), FLEXIBLE, TRANSORAL, DIAGNOSTIC performed by Rivka Rivas MD at ENDOSCOPY [facility] HEMORRHOIDECTOMY,EXTERNAL, 2 + COLUMNS 07/04/04 done at [facility] by Dr. Ramey HEMORRHOIDECTOMY,EXTERNAL, 2 + COLUMNS 04/20/2010 HEMORRHOIDECTOMY EXTERNAL COMPLETE performed by BETZY NUNEZ [place] [facility] LAPAROSCOPY, SURGICAL; W/LYSIS OF ADHESIONS 1991, 1994 and diagnositic endometriosis, cautery MAMMOGRAM - 1 BREAST 08/19/06 Left/Birad code 2/benign findings/Dr Laboy NEEDLE BIOPSY OF LIVER W/OTHER PROC august 1997 RECTAL TUMOR REMOVE,TRANSANAL,PARTIAL THICK 01/02/2013 EXCISION RECTAL TUMOR, TRANSANAL, PARTIAL THICK performed by Betzy Nunez MD [place] [facility] REMOVAL OF APPENDIX 1973 3rd grade REMOVAL OF FOOT LESION 09/21/2009 No Evidence of Malignancy REMOVAL OF URETER STONE december1998 [place], dr laureano REMOVE GALLBLADDER august 1997 REPAIR BLADDER DEFECT 08/23/2010 VAGINAL SLING PROCEDURE FOR STRESS INCONTINENCE performed by LARISA SANCHEZ [place] [facility] REPAIR/REVISION OF PERINEUM 08/23/2010 PERINEOPLASTY performed by LARISA SANCHEZ at [place] [facility] TREAT ECTOPIC , TUBE/OVARY 1989 salpingostomy Review [...] Self-Exams Not Asked 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 [id number] Influenza (Adult) Updated for the 2423-4611 flu season Influenza is also called the [...] loosen secretions in your nose and lungs. [id number] cold medicines will not make the flu [...] and certain anti-inflammatory medicines. Last Reviewed Date: 11/15/202119992377-[address] [employer]. All rights reserved. This information is not [...] this encounter Medical Devices Implanted Type Area Bioinformatics Technician Device Identifier Shelf Expiration Date Model / Serial / Lot System Secondary School Principal Tvt Obturat [id number] - [id number] Implanted:Qty: 1 on 08/23/2010 [place] [facility] N/A: Bladder JN[place] : [employer] 09/23/2010 [id number] / / [id number] documented as of this encounter Visit Diagnoses [...] the patient have Health Care Power of Java Technical Manager? No Care Teams Rehab Trainer Relationship Specialty Start Date End Date Asha Dobbs PA-C [address] [place] [address], [place] [address] PCP - General Physician Ms Access Database Developer 08/29/23 documented as of this encounter
--- OUTSIDE RECORDS SUMMARY | 2023-11-06 21:05 | External Medical Summary | Summary of Care ---
Author Name Unknown Organization [facility] Address [address] [facility] [place] [address] Phone [phone] Care Team Providers Care Rn Oncology Research Name Role Phone Asha Dobbs PA-C Primary Care Provide r Reason for Visit * Reason Comments Cold Symptoms Encounter Details Date Type Department Care Team (Latest Contact Info) Description 08/29/2023 11:50 AM EDT Convenient Care Visit Ashlyn Convenient Kath Layne [email or web address] [address] [place] [id number] Rebekah Cerda PA-C [address] [place] [address] Upper respiratory tract infection, unspecified type* Allergies [...] anxiety, PRN: as needed for anxiety, Pharmacy: [facility]/pharmacy #[id number] 12/14/2020 Active Promethazine HCl 25 MG Oral Tablet (Phenergan) 1 Tablet. 0 12/14/2020 Active Phentermine HCl 37.5 MG Oral Capsule Take by mouth 1 Capsule in the morning. 30 Capsule 1 08/10/2021 Active Dexcom G7 Certified Emergency Vehicle Technician Device Start: 11/05/22 8:21:00 EDT, DEXCOM G7 SPECIAL TESTER, See Instructions, Disp# 1 unknown unit, Refills: 0, USE DIRECTED, Pharmacy [id number] 0 10/04/2022 Active Dexcom G7 Sensor Start: 11/05/22 10:54:00 EDT, See Instructions, Disp# 4 each, Refills: 11, apply 1 sensor every 10 days, Pharmacy: [facility]/pharmacy #[id number] 11/05/2022 Active Continuation [...] hemoglobin A1c goal of less than 8.0% ([facility]) E11.9 Calculus of kidney N20.0 Chronic interstitial cystitis N30.10 Condyloma acuminatum in female A63.0 Herpes labialis B00.1 History of appendectomy Z90.49 History of cholecystectomy Z90.49 Lichen sclerosus et atrophicus of the vulva N90.4 Mediastinal lymphadenopathy R59.0 Palpitations R00.2 Peripheral nerve disease G62.9 Prolonged QT interval R94.31 Sarcoidosis of lung with sarcoidosis of lymph nodes ([facility]) D86.2 Chronic insomnia F51.04 Anxiety and depression [...] 1 Kit 0 ONETOUCH DELICA LANCETS [facility] USE UP TO FOUR TIMES A DAY [...] anxiety, PRN: as needed for anxiety, Pharmacy: [facility]/pharmacy #[id number] Promethazine HCl 25 MG Oral Tablet (Phenergan) 1 Tablet. Phentermine HCl 37.5 MG Oral Capsule Take by mouth 1 Capsule in the morning. 30 Capsule 1 Dexcom G7 Certified Emergency Vehicle Technician Device Start: 11/05/22 8:21:00 EDT, DEXCOM G7 SPECIAL TESTER, See Instructions, Disp# 1 unknown unit, Refills: 0, USE DIRECTED, Pharmacy [facility] STORE [id number] Dexcom G7 Sensor Start: 11/05/22 10:54:00 EDT, See Instructions, Disp# 4 each, Refills: 11, apply 1 sensor every 10 days, Pharmacy: [facility]/pharmacy #[id number] Continuation of patient use of medical marijuana [...] disorders of liver fatty liver Biopsy in [place] 1998 Past Surgical History: Procedure Laterality Date ANORECTAL EXAM ,DIAG, REQUIRING ANESTHESIA 04/20/2010 ANORECTAL EXAM UNDER ANESTHESIA performed by BETZY NUNEZ at OR [facility] BUNION CORRECTED WITH DOUBLE OSTEOTOMY october COLONOSCOPY W/ BIOPSY (RECTUM) 05/04/09 normal COLONOSCOPY, DIAGNOSTIC (RECTUM) 04/23/2013 COLONOSCOPY FLEXIBLE PROXIMAL DIAGNOSTIC performed by Betzy Nunez MD at ENDOSCOPY [facility] EGD, FLEXIBLE, DIAGNOSTIC 09/10/2017 reflux esophagitis/ESOPHAGOGASTRODUODENOSCOPY (EGD), FLEXIBLE, TRANSORAL, DIAGNOSTIC performed by Rivka Rivas MD at ENDOSCOPY [facility] HEMORRHOIDECTOMY,EXTERNAL, 2 + COLUMNS 07/04/04 done at [facility] by Dr. Ramey HEMORRHOIDECTOMY,EXTERNAL, 2 + COLUMNS 04/20/2010 HEMORRHOIDECTOMY EXTERNAL COMPLETE performed by BETZY UNNEZ at OR [facility] LAPAROSCOPY, SURGICAL; W/LYSIS OF ADHESIONS 1991, 1994 and diagnositic endometriosis, cautery MAMMOGRAM - 1 BREAST 08/19/06 Left/Birad code 2/benign findings/Dr Laboy NEEDLE BIOPSY OF LIVER W/OTHER PROC august 1997 RECTAL TUMOR REMOVE,TRANSANAL,PARTIAL THICK 01/02/2013 EXCISION RECTAL TUMOR, TRANSANAL, PARTIAL THICK performed by Betzy Nunez MD at OR [facility] REMOVAL OF APPENDIX 1973 3rd grade REMOVAL OF FOOT LESION 09/21/2009 No Evidence of Malignancy REMOVAL OF URETER STONE december1998 [place], dr laureano REMOVE GALLBLADDER august 1997 REPAIR BLADDER DEFECT 08/23/2010 VAGINAL SLING PROCEDURE FOR STRESS INCONTINENCE performed by LARISA SANCHEZ at OR [facility] REPAIR/REVISION OF PERINEUM 08/23/2010 PERINEOPLASTY performed by LARISA SANCHEZ at OR [facility] TREAT ECTOPIC , TUBE/OVARY 1989 salpingostomy Review [...] Self-Exams Not Asked 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 [id number] Influenza (Adult) Updated for the [id number] flu season Influenza is also called the [...] loosen secretions in your nose and lungs. Ozhl-lin-vubakmp cold medicines will not make the flu [...] and certain anti-inflammatory medicines. Last Reviewed Date: 11/15/202119997102-4448 The [employer]. All rights reserved. This information is not [...] this encounter Medical Devices Implanted Type Area Business Insurance Agent Device Identifier Shelf Expiration Date Model / Serial / Lot System Carton Maker Tvt Obturat [id number] - [id number] Implanted:Qty: 1 on 08/23/2010 at OR [facility] N/A: Bladder JN[place] : [employer] 09/23/2010 [id number] / / [id number] documented as of this encounter Visit Diagnoses [...] the patient have Health Care Power of Rehab Rn? No Care Teams Rn Oncology Research Relationship Specialty Start Date End Date Asha Dobbs PA-C [address] [place] [address], [place] [address] PCP - General Physician Oral Hygienist 08/29/23 documented as of this encounter
--- OUTSIDE RECORDS SUMMARY | 2023-11-06 21:05 | External Medical Summary | Summary of Care ---
Author Name Unknown Organization [facility] [address] [facility] [address] Phone [phone] Care Team Providers Care Outsole Molder Name Role Phone Asha Dobbs PA-C Primary Care Provide r Encounter Details Date Type Department Care Team (Late st Contact Info) Description 08/29/2023 Telephone [facility] [address] [facility] [address] [place] [phone] Rebekah Cerda PA-C [address] [facility] [address] [place] [address] Allergies Active Allergy Reactions Criticality Noted Date [...] daily. Dx: 1 Kit 0 08/08/2018 Active DAMASOTOGALILEO NAVI LANCEVA FINE MISCIndications:Type 2 diabetes mellitus with hemoglobin [...] anxiety, PRN: as needed for anxiety, Pharmacy: [facility]/pharmacy #[id number] 0 12/14/2020 Active Promethazine HCl 25 MG Oral Tablet (Phenergan) 1 Tablet. 0 12/14/2020 Active Phentermine HCl 37.5 MG Oral Capsule Take by mouth 1 Capsule in the morning. 30 Capsule 1 08/10/2021 Active Dexcom G7 Back Grinder Device Start: 11/05/22 8:21:00 EDT, DEXCOM G7 COIL FORMER, See Instructions, Disp# 1 unknown unit, Refills: 0, USE DIRECTED, Pharmacy [facility] STORE [id number] 0 10/04/2022 Active Dexcom G7 Sensor Start: 11/05/22 10:54:00 EDT, See Instructions, Disp# 4 each, Refills: 11, apply 1 sensor every 10 days, Pharmacy: [facility]/pharmacy #[id number] 11/05/2022 Active Continuation of patient [...] 08/29/2023) Immunizations Name Administration Dates Next Due Hepatitis B, 20+ yrs 01/05/2016,01/07/2014 MMR - Measles/Mumps/Rubella Vaccine 02/02/2009 Pneumococcal Polysaccharide PPV23 (Pneumovax) TD, Preservative Free 12/15/2006 TDAP (age 10 and older)(Boostrix) 01/07/2014 documented as of this encounter Social History Tobacco Use Types Packs/Day Years Used Date Smoking Tobacco: Former Cigarettes 5 0 07/31/1999 - 07/31/2004 Smokeless Tobacco: Never Comments:occas Alcohol Use Standard Drinks/Week Comments Yes [...] on file documented as of this encounter Plan of Treatment Scheduled Procedures Name Priority Associated Diagnoses Date/Ti [...] this encounter Medical Devices Implanted Type Area Web Methods Developer Device Identifier Shelf Expiration Date Model / Serial / Lot System Circular Ripsaw Operator Tvt Obturat [id number] - [id number] Implanted:Qty: 1 on 08/23/2010 at OR [facility] N/A: Bladder JNJ : [employer] 09/23/2010 [id number] / / [id number] documented as of this encounter Advance Directives Latest Code Status [...] the patient have Health Care Power of Quality Assurance Test Program Manager? No Care Teams Outsole Molder Relationship Specialty Start Date End Date Asha Dobbs [facility]-C [facility] [place] [address] PCP - General Physician Warehouse Helper 08/29/23 documented as of this encounter
--- OUTSIDE RECORDS SUMMARY | 2023-11-06 21:05 | External Medical Summary | Continuity of Care Document ---
Author Name Unknown Organization [facility] Address [address] [place] [address] [place] [phone] Care Team Providers Care Market Research Worker Name Role Phone Asha Dobbs Primary Care Physician [phone] [id number]): [facility]/05[facility]23 - 06/05/23 [facility] [address], [address], [address] [place] [address] Encounter Diagnosis Sarcoidosis of lung with sarcoidosis of lymph nodes(Discharge Diagnosis) - 06/05/23 Discharge Disposition: Home or Self Care Attending Physician: MD Katie, Rafi Waters Allergies, Adverse Reactions, Alerts Substance Reaction Severity [...] anxiety, PRN: as needed for anxiety, [id number] Start Date: 12/14/20 Status: Ordered buPROPion 200 mg/12 hours (SR) oral tablet, extended release Start: 05/06/23 15:49:00 EST, 1 tab, PO, Daily Start Date: 05/06/23 Status: Ordered busPIRone 15 mg oral tablet Start: 12/14/20 16:08:00 EDT, 1 tab, PO, bid, Disp# 180 tab, Refills: 3, [id number] Start Date: 12/14/20 Stop Date: 12/09/21 Status: Ordered clobetasol 0.05% topical ointment Start: 05/06/23 15:53:00 EST, See Instructions, Disp# 60 g, Refills: 0, USE 1 APPLICATION TOPICALLYTWICE A DAY X14 DAYS. APPLY A THIN FILM TO VULVA, [id number] Start Date: 05/06/23 Status: Ordered DEXCOM G7 SPEEDER FRAME TENDER Start: 11/05/22 8:21:00 EDT, DEXCOM G7 SPEEDER FRAME TENDER, See Instructions, Disp# 1 unknown unit, Refills: 0, USE DIRECTED, Pharmacy [id number] Start Date: 11/05/22 Status: Ordered Dexcom G7 Information Security Systems Instructor Start: 10/04/22 13:31:00 EDT, See Instructions, Disp# 1 kit, Use as directed, [id number] Start Date: 10/04/22 Status: Ordered Dexcom G7 Sensor Start: 11/05/22 10:54:00 EDT, See Instructions, Disp# 4 each, Refills: 11, apply 1 sensor every 10 days, [id number] Start Date: 11/05/22 Status: Ordered Dexcom G7 Sensor Start: 10/04/22 13:31:00 EDT, See Instructions, Disp# 3 kit, Use as directed, Note to Pharmacy: dispensing 9 sensors, [id number] Start Date: 10/04/22 Status: Ordered escitalopram 20 mg oral tablet See Instructions, Disp# 30 tab, Refills: 5, TAKE 1 TABLET BY MOUTH EVERY DAY, Pharmacy: [id number] Start Date: 12/29/20 Status: Ordered Medical Marijuana Start: 04/04/21 15:08:00 EDT, 1 inh, inhaled, qhs Start Date: 04/04/21 Status: Ordered MetFORMIN (Eqv-Glucophage XR) 500 mg oral tablet, extended release Start: 06/06/23 8:39:00 EST, 4 tab, PO, Daily, Disp# 90 tab, Refills: 1, Pharmacy: [facility] Start Date: 06/06/23 Status: Ordered Mounjaro 5 mg/0.5 mL subcutaneous solution Start: 03/25/23 9:30:00 EDT, 5 mg =, subQ, q7days, Disp# 2 unknown unit, Refills: 5, Pharmacy: [facility] Start Date: 03/25/23 Status: Ordered omeprazole 40 mg oral delayed release capsule Start: 01/28/23 13:40:00 EDT, See Instructions, Disp# 60 cap, Refills: 5, TAKE 1 CAPSULE BY MOUTH TWICE A DAY, Pharmacy: [facility] Start Date: 01/28/23 Status: Ordered ondansetron 4 mg oral tablet, disintegrating Start: 08/10/20 15:16:00 EST, 1 tab, PO, q8h, Disp# 90 tab, Note to Pharmacy: cancel oral tablet, PRN: as needed for nausea/vomiting, Pharmacy: [facility]/pharmacy #[id number] Start Date: 08/10/20 Stop Date: 09/09/20 Status: Ordered Phenergan 25 mg oral tablet Start: 10/22/22 16:05:00 EDT, 1 tab, PO, q6h, Disp# 40 tab, Refills: 1, PRN: as needed for nausea/vomiting, Pharmacy: [facility]/pharm[facility] #[id number] Start Date: 10/22/22 Stop Date: 11/11/22 Status: Ordered rOPINIRole 2 mg oral tablet Start: 03/28/23 13:47:00 EDT, See Instructions, Disp# 90 tab, Refills: 1, TAKE 1 TABLET BY MOUTH EVERY DAY, Pharmacy: [facility]/pharmacy #[id number] Start Date: 03/28/23 Status: Ordered Mental Status 06/05/23 Barriers to Learning one year None evide nt Mandatory Health Literacy Documentation Yes Health Literacy Communication Barriers R tanya Primary Language Hong Konger Problem List Condition Confirmation Course Effective Dates [...] Diagnosis Diagnosis Type Effective Dates Health Status Clinical Service Informant Sarcoidosis of lung with sarcoidosis of lymph nodes Discharge Diagnosis 06/05/23 Procedures Procedure Date Related Diagnosis Body Site [...] tubal ecto pic by abdominal approach [facility]; 1. No acute osseous pathology [facility]: 1. No acute osseous pathology 2. Hallux valgus deformity and osteoarthritis [facility] Laser destruction and basket extraction of stone. Insertion of stent catheter, left 4[facility] Impression: 1. 8 mm calculus in the [...] antrum nl bx, 2nd duod nl bx [facility] Impresson: 1. No bowel obstruction or bowel wall thickening 2. Pathologically enlarged periesophageal gastropetic, periportal, pericaval and aortocaval lymph nodes have increased in size from comparison. Suspicious nonenlarged epicardial lymph nodes are also present. Primary differential consideration is a lymphoproliferative disorder. Oncologic workup is needed 3. Cholecystectomy 4. Nonobstructing bilateral nephrolithiasis [facility] direct laryngoscopy, esophagoscopy right mid neck lymph node excision 10Pathology: Benign lymph nodes inside the lipoma with no sign of granuloma 11[facility] Direct laryngoscopy and esophagoscopy followed by excision of right cervical node. Sent as fresh speciem for flow cytometry 12[facility] Impression: 1. No conventional radiographic evidence of a skull lesion 131. Abnormal enlarged bulky mediastinal and hilar adenopathy of uncertain etiology. 2. Hepatic steatosis. Cholecystectomy. 141. Left submandibular sialolith. Enlargement of the left submandibular gland with infiltration of the surrounding soft tissues and subcutaneous fat. Asymmetric left cervical adenopathy. 2. Superior mediastinal adenopathy. Recommend CT of the chest for further evaluation. Vital Signs Most recent to oldest [Reference Range]: 1 Height 162 cm (06/05/23 11:11 AM) Patient Weight 62.5 kg (06/05/23 11:11 AM) Body Mass Index 23.81 kg/m2 (06/05/23 11:11 AM) Temperature [36.5-37.9 DegC] 36.8 DegC (06/05/23 11:11 AM) Heart Rate 98 bpm (06/05/23 11:11 AM) Blood Pressure 132/85mmHg (06/05/23 11:11 AM) Cuff Pulse Pressure 47 mmHg (06/05/23 11:11 AM) BP Location # 1 Left Arm (06/05/23 11:11 AM) Social History Social History Type Response Smoking Status Former Smoker, quit > 1 yr Sex Female Patient Care team information Care Team Personnel Name: MD Katie, Rafi Waters Position: Physician - Pulmonary Med Member Role: Lifetime Relationship Address: Address: [address] [place] [address] [address] [place] [address] [place] Name: LORENZO Dobbs, Asha Obando Position: Physician Asst Exmpt - Family Med Member Role: Primary Care Provider Address: Address: [address] [facility] [address] [place] [address] [place] Care Team Related Persons Name: TOM GRANDE
[2023-11-07] MEDS: oxyCODONE HCL IR 5 MG TAB (IMMEDIATE RELEASE) PO PRN (04:30)
--- NOTE | 2023-11-07 07:37 | Urology Progress Note ---
Date of Service November 07, 2023 Assessment & Plan (1) Ureterolithiasis: (2) Renal colic on right side: Plan: Follow-up of right UVJ stone Patient afebrile and hemodynamically stable No new labs at time of visit this morning She did not pass stone overnight Continues to have some flank discomfort Reviewed options for stone management including trial of passage versus surgical intervention with right stent placement today versus outpatient surgical procedure for stone treatment After discussion, she prefers outpatient surgery for stone treatment This is reasonable given she has been stable and pain is adequately controlled, am labs still pending She can be discharged to home from perspective when medically stable Recommend Tamsulosin and prn analgesia for symptom management Continue to strain urine Will arrange outpatient follow-up with our service to discuss definitive stone management Admission and Anticipated Discharge Date Admission Date: November 06, 2023 Subjective Patient seen and examined at bedside this morning She is awake and ambulating from the restroom upon my arrival No acute issues overnight Continues to have some right flank discomfort Denies stone passage Denies fevers, chills, nausea or vomiting Review of Systems Constitutional: as per Subjective / HPI Genitourinary: as per Subjective / HPI Physical Exam Constitutional: well developed and well nourished; no acute distress Respiratory: normal respiratory effort; no respiratory distress and no labored breathing Gastrointestinal (Abdomen): Inspection/Auscultation: abdomen normal to inspection Musculoskeletal: Head/Neck/Chest: normocephalic Neurologic: moves all extremities and awake Psychiatric: Orientation: alert and oriented x 3 Results & Data Vital Signs (Past 12 Hours) Vital Signs Temp Pulse Resp BP BP Pulse Ox O2 Del Method 11/07/23 07:22 37.3 C 77 16 118/70 95 Room Air 11/06/23 20:52 36.6 C 73 16 103/64 96 Room Air PG Care Time/CCT Total # of Minutes Spent Total Time Spent with Patient: Total time spent is greater than 50% in coordination of care (as documented) at patient's floor/unit and/or counseling patient: Coding Level of Care Code 44000 SUB INP/OBS CARE 1/25MIN Diagnoses Ureterolithiasis N20.1 Renal colic on right side N23
[2023-11-07 08:10] LABS: Hematocrit (blood only) 34.2 % (37.0-47.0); Hemoglobin 11.3 g/dl (12.0-16.0); Mean Corpuscular Volume 84.9 fL (80.0-100.0); Mean Platelet Volume 9.5 fL (9.4-12.4); Platelet Count 213 K/uL (130-400); RDW Coefficient of Variation 14.1 % (11.5-14.5); RDW Standard Deviation 43.8 fL (36.4-46.3); Red Blood Count 4.03 M/uL (4.20-5.40)
[2023-11-07 08:21] LABS: BUN Creatinine Ratio 12.2 (10-20); Calcium 8.5 mg/dl (8.6-10.3); Creatinine Clr Calc Pharmacy 63.8 ml/min; Est GFR (African American) 81.7 ml/min; Est GFR (Non-African American) 70.5 ml/min; Potassium 3.7 mmol/L (3.5-5.1)
[2023-11-07] MEDS: PROCHLORPERAZINE 10 MG in SYRINGE 8 ML IV PRN (13:43)
--- NOTE | 2023-11-07 14:39 | Hospitalist Progress Note ---
Date of Service November 07, 2023 Assessment & Plan (1) Ureterolithiasis: Plan: 58yo female presenting with right flank pain. Found to have 5.4mm stone in right UVJ with hydronephrosis. Still requiring IV morphine and vomiting with trying to eat, stone hasnot passed with FLomax, IVFs, time. Pt now agreeable to ureteral stent placement but since she ate today, will plan for tomorrow as per Urol UA not consistent with infection as is contaminated. Leukocytosis reactive to vomiting and stress and now resolved without antibiotics. No fevers, no need for antibiotics Keep NPO after midnight Continue LR at 150mL/hr Continue Flomax, IV morphine, po oxycodone if tolerating po Strain urine Morphine PRN pain Compazine PRN nausea given prolonged QTc Urology consultation appreciated (2) Diabetes mellitus type 2 in nonobese: Plan: Chronic. Patient is on Glimepiride and Mounjaro at home-meds on hold Stop Lantus ordered on admission as she remains NPO/minimal intake and glucose normal COntinue Novolog but loosen range and make CF 40 (3) Depressive disorder: Plan: Chronic. Patient with history of depression and PTSD Continue Xanax PRN,Bupropion, Buspirone, Escitalopram (4) Sleep apnea: Plan: Chronic. Patient does not use device (5) Sarcoidosis: Plan: with pulm, skin, and extrathoracic lymph node involvement follows with PULM at [place], not on any treatment likely contributes to frequent kidney stone formation although serum calcium levels not elevated here Plan DVT proph-add SCDs Dispo-continued stay on med/surg Admission and Anticipated Discharge Date Admission Date: November 06, 2023 Subjective Pt continues to have ongoing severe right flank pain, requiring IV morphine. She tried to eat lunch and vomited again. She now would like to have a ureteral stent placed but will be tomorrow as she ate food today. Discussed care with Urology PIGEON FANCIER Physical Exam Constitutional: WD/WN, vitals as above Respiratory: normal respiratory effort, lungs clear to auscultation Cardiovascular: RRR, no murmur, no edema Gastrointestinal (Abdomen): Inspection/Auscultation: abdomen normal to inspection and normal bowel sounds; abdomen not distended Percussion/Palpation: + abdomen tender (right CVA tenderness) and abdomen soft; no guarding Psychiatric: A+Ox3, euthymic affect Results & Data Results & Data Vital Signs (Past 12 Hours) Vital Signs Temp Pulse Resp BP Pulse Ox O2 Del Method 11/07/23 07:22 37.3 C 77 16 118/70 95 Room Air Laboratory Results CBC, BMP reviewed PG Care Time/CCT Total # of Minutes Spent Total Time Spent with Patient: Total time spent is greater than 50% in coordination of care (as documented) at patient's floor/unit and/or counseling patient: Coding Level of Care Code 96056 SUB INP/OBS CARE 2/35MIN Diagnoses Ureterolithiasis N20.1 Diabetes mellitus type 2 in nonobese E11.9 Depressive disorder F32.9 Sleep apnea G47.30 Sarcoidosis D86.9
[2023-11-08] MEDS ORDERED: Nursing to Pharmacy Communication SCH ×2 (00:30→09:00)
[2023-11-08] MEDS: INSULIN ASPART PER UNIT CHARGE SC SCH (06:23)
[2023-11-08 08:15] LABS: Basophils # (auto) 0.04 K/uL (0.00-0.20); Basophils % (auto) 0.7 %; Eosinophils # (auto) 0.29 K/uL (0.00-0.50); Eosinophils % (auto) 5.1 %; Hematocrit (blood only) 36.3 % (37.0-47.0); Immature Granulocytes # (auto) 0.02 K/uL (0.01-0.20); Immature Granulocytes % (auto) 0.3 %; Lymphocytes # (auto) 1.87 K/uL (1.20-3.40); Lymphocytes % (auto) 32.6 %; Mean Corpuscular Hemoglobin 28.1 pg (25.0-34.0); Mean Corpuscular Hgb Conc 33.1 g/dL (32.0-36.0); Mean Platelet Volume 9.6 fL (9.4-12.4); Monocytes # (auto) 0.64 K/uL (0.11-0.59); Monocytes % (auto) 11.2 %; Neutrophils # (auto) 2.87 K/uL (1.40-6.50); Neutrophils % (auto) 50.1 %; Platelet Count 217 K/uL (130-400); RDW Coefficient of Variation 13.9 % (11.5-14.5); RDW Standard Deviation 43.2 fL (36.4-46.3); Red Blood Count 4.27 M/uL (4.20-5.40); White Blood Count 5.73 K/ul (4.8-10.8)
[2023-11-08 08:33] LABS: BUN Creatinine Ratio 9.9 (10-20); Calcium 8.6 mg/dl (8.6-10.3); Creatinine Clr Calc Pharmacy 70.9 ml/min; Est GFR (African American) 92.8 ml/min; Est GFR (Non-African American) 80.1 ml/min; Potassium 3.5 mmol/L (3.5-5.1)
--- NOTE | 2023-11-08 08:55 | Urology Progress Note ---
Date of Service November 08, 2023 Assessment & Plan (1) Renal colic on right side: (2) Ureterolithiasis: Plan: Follow-up of right UVJ stone Remains afebrile and hemodynamically stable Labs reviewedcreatinine 0.81, no leukocytosis She did not pass stone overnight, but is feeling better Reports pain is much better overnight and this am, adequately controlled with PO medication as needed Reviewed options for stone management including trial of passage versus surgical intervention with right stent placement today versus outpatient surgical procedure for stone treatment After discussion, she prefers trial of passage and outpatient follow-up This is reasonable given she has been stable and pain is adequately controlled She can be discharged to home from perspective when medically stable Recommend Tamsulosin and prn analgesia for symptom management Continue to strain urine She is scheduled for follow-up next week with urology will sign off, please contact our service with any additional questions or concerns Admission and Anticipated Discharge Date Admission Date: November 06, 2023 Subjective Patient seen and examined at bedside this morning She has increased pain, N/V yesterday after lunch and stayed to reassess for possible procedure today No acute issues overnight She reports her pain is much better, adequately controlled with PO medication She denies stone passage Voiding without difficulty, noted some mild hematuria this am Denies fever, chills, nausea or vomiting Review of Systems Constitutional: as per Subjective / HPI Genitourinary: as per Subjective / HPI Physical Exam Constitutional: well developed and well nourished; no acute distress Respiratory: normal respiratory effort; no respiratory distress and no labored breathing Gastrointestinal (Abdomen): Inspection/Auscultation: abdomen normal to inspection Musculoskeletal: Head/Neck/Chest: normocephalic Neurologic: moves all extremities and awake Psychiatric: Orientation: alert and oriented x 3 Results & Data Vital Signs (Past 12 Hours) Vital Signs Temp Pulse Resp BP Pulse Ox O2 Del Method 11/08/23 07:22 36.5 C 69 16 120/68 98 Room Air PG Care Time/CCT Total # of Minutes Spent Total Time Spent with Patient: Total time spent is greater than 50% in coordination of care (as documented) at patient's floor/unit and/or counseling patient: Coding Level of Care Code 11708 SUB INP/OBS CARE /25MIN Diagnoses Renal colic on right side N23 Ureterolithiasis N20.1
[2023-11-08] MEDS ORDERED: INSULIN ASPART PER UNIT CHARGE SC SCH (11:30)
--- NOTE | 2023-11-08 11:45 | Discharge Summary ---
Date of Service November 08, 2023 Admission HPI Per Admitting Provider Violeta Dockery is a 58yo female with history of DM, LARRY, FM and Sarcoidosis presenting with right flank pain as well as nausea, vomiting and chills. She reports that pain is more severe than prior episodes of kidney stones. No additional complaints at this time. In the ER she is afebrile, HD stable ER Course: Dilaudid 0.5mg IV Toradol 15mg IV Morphine 4mg IV Zofran 4mg IV NSS x 500mL Principal Diagnosis Right ureter colic and calculus, right hydronephrosis Discharge Exam General-alert and oriented x3, no fever, no chills HEENT-head atraumatic and normocephalic, pupils equal and reactive to light, extraocular muscles intact Neck-no lymphadenopathy or thyromegaly, trachea midline Chest-clear to auscultation. No rales, wheezing or rhonchi Cardiac-regular rate and rhythm, normal S1 and S2 Abdomen-normal bowel sounds, no hepatosplenomegaly Extremities-no cyanosis, clubbing, or edema Neuro-cranial nerves II through XII intact, motor and sensory function within normal limits, strength symmetrical, no focal deficits Psych-normal affect, normal mood Discharge Data Allergies Allergy/AdvReac Type Severity Reaction Status Date / Time Sulfa (Sulfonamide Allergy Intermediate HIVES Verified 11/06/23 02:18 Antibiotics) nitrofurantoin Allergy Mild Rash Verified 11/06/23 02:18 [From Macrobid] Consultations 11/06/23 03:27 ED Decision to Admit Stat 11/06/23 03:49 Consult Urology Routine Ordered Studies 11/06/23 00:18 CT abd pelvis wo con Stat Hospital Course (1) Ureterolithiasis: Continue Flomax and pain control measures. Urology consultation and recommendations appreciated. Outpatient management indicated. (2) Diabetes mellitus type 2 in nonobese: ADA diet. Sliding scale coverage as needed. Usual home medications are currently on hold (3) Depressive disorder: Stable. Continue current medical management (4) Sarcoidosis: with pulm, skin, and extrathoracic lymph node involvement. Follows with [facility] at [place], not on any treatment. Plan Home today, November 07 Total Time Total Time Spent Total Time Spent (In Minutes): 45 minutes Discharge Plan Discharge Items Patient Disposition: Home - Self-Care Reason For Visit: RENAL STONE Discharge Diagnosis: Right ureter calculus and colic, right hydronephrosis Condition on Discharge: Good Activity: Resume your previous activity Non-emergency contact: Primary Care Provider and Urologist Call non-emergency contact if: you have any medication questions and your symptoms worsen Follow-up/Referrals: Leticia Hoyt CRNP [Nurse Practitioner] - 11/14/23 3:30 pm Asha Dobbs PA-C [Primary Care Provider] - Diet: Regular Addtl Attending Provider Instructions: Take Flomax daily. Use oxycodone as needed for pain. Follow-up with urology in 1 week Pending Studies at Discharge: No Stand-Alone Forms: My Existence Before Essence, Smoking Cessation Medications and DC Order Prescriptions: New tamsulosin 0.4 mg Capsule 0.4 mg PO QAM Qty: 20 0RF oxycodone 5 mg Tablet 5 mg PO Q4H PRN (Reason: pain) Qty: 20 0RF Continued glimepiride 4 mg Tablet 4 mg PO PM Patient Comments: PT STATES 2MG, BUT PHARMACY RECORDS SHOW 4MG DAILY buspirone 15 mg tablet 15 mg PO BID escitalopram oxalate 20 mg tablet 20 mg PO QPM alprazolam [Xanax] 0.5 mg tablet 0.5 mg PO DAILY PRN (Reason: Anxiety) omeprazole 40 mg capsule,delayed release(DR/EC) 40 mg PO BID ropinirole 0.25 mg tablet 0.75 mg PO HS ropinirole 2 mg tablet 2 mg PO DAILY bupropion HCl [Wellbutrin SR] 200 mg tablet sustained-release 12 hr 200 mg PO DAILY Mounjaro 12.5 mg/0.5 mL pen injector 12.5 mg SUBCUT WK Rx Instructions: [place] Discharge Orders: Discharge Order (Routine); Ordered 11/08/23 Ordered By: Umang Magana Admission Data Admit Date/Time: 11/06/23 03:49 Attending Provider: Umang Magana Admit Provider: Ne Banerjee Primary Care Provider: Asha Dobbs Other Providers: Kwame Kirby; Ne Banerjee Coding Level of Care Code 57167 INP/OBS DISCH >30 MIN Diagnoses Ureterolithiasis N20.1 Diabetes mellitus type 2 in nonobese E11.9 Depressive disorder F32.9 Sarcoidosis D86.9
== END 2023-11-08 12:39 | disposition home or self-care (01) | DRG 694 ==
LOC: SUATTDRO → ED 00:12 → EDINP 03:49 → SUATTDRO 03:49 → 3N 09:10
DX: N13.2 Hydronephrosis with renal and ureteral calculous obstruction; Z79.84 Long term (current) use of oral hypoglycemic drugs; Z79.85 Long-term (current) use of injectable non-insulin antidiabetic drugs; G47.30 Sleep apnea, unspecified; D86.89 Sarcoidosis of other sites; F32.A Depression, unspecified; F43.10 Post-traumatic stress disorder, unspecified; Z79.899 Other long term (current) drug therapy; E11.9 Type 2 diabetes mellitus without complications